=== PATIENT | female | born 1985 | race Caucasian/White ===

== ENCOUNTER → 2017-08-18 11:24 | Outpatient (CLI) | payer OTHER, SELFPAY ==
[2017-07-28 10:12] VITALS: BP 90/52; BMI 21.2
--- NOTE | 2017-08-18 11:26 | US_ITS ---
STUDY: SECOND AND THIRD TRIMESTER OBSTETRICAL ULTRASOUND - LIMITED REASON FOR EXAM: Female, 32 years old. WELL BEING LMP: PRIOR ULTRASOUND: 12..17 TECHNIQUE: Transabdominal ultrasound evaluation was performed. FINDINGS: There is a single intrauterine fetus. The fetus is in a cephalic presentation. There is demonstrated cardiac activity with a heart rate of 127 bpm. There is a normal amniotic fluid volume. The largest amniotic fluid pocket measures 5.4 cm. The amniotic fluid index (CHARLEY) is 12.9 cm. The placenta is anterior in location and is not low lying. There are Grade 1 placental changes. The cervix measures 44 mm cm in length. BIOMETRY: BPD: 86mm: 34 weeks, 4 days HC: 305mm: 34 weeks, 0 days AC: 280mm: 32 weeks, 0 days FL: 61mm: 31 weeks, 5 days Age by LMP: 31 weeks, 6 days. YOBANY by LMP: 4.26.18. age by prior US: 32 weeks, 6 days. YOBANY by prior US: 4.19.18. age by current US: 33 weeks, 1 days. YOBANY by current US: 4.17.18. Estimated weight: 1940 grams, +/- 283 grams, 53 percentile. US/OB Limited With Biometrics IMPRESSION: There is a single live intrauterine with a heart rate of 127 bpm. age by current US: 33 weeks, 1 days. YOBANY by current US: 4.17.18. Electronically Signed: Ivan Purdy MD at 18:01 EST , Service support ,
== END ==
PROVIDERS: Family Provider Family Medicine; PCP Family Medicine; Visit Provider Obstetrics & Gynecology
DX: O09.899 Supervision of other high risk pregnancies, unspecified trimester (principal); Z3A.00 Weeks of gestation of pregnancy not specified
CPT/HCPCS: 76816

== ENCOUNTER → 2017-09-08 09:04 | Outpatient (CLI) | payer OTHER, SELFPAY ==
[2017-09-08 10:10] LABS: Absolute Lymphocyte Count 1.57 X10^3/ul (0.83-4.51); Absolute Neutrophil Count 7.1 X10^3/uL (2.0-7.7); Basophil# 0.02 X10^3/uL; Basophil% 0.2 % (0-1); Eosinophil# 0.03 X10^3/uL; Eosinophils% 0.3 % (0-5); Hematocrit 33.2 % (37-47); Hemoglobin 10.8 g/dl (12.0-15.0); Lymphocyte # 1.57 X10^3/ul (4.0); Lymphocyte % 16.7 % (19-41); Mean Corp Hgb Conc 32.5 g/gl (32-36); Mean Corpuscular Hgb 31.2 pg (27.0-32.0); Mean Platelet Vol. 9.8 fl (6.2-12.0); Monocyte# 0.62 X10^3/uL; Monocyte% 6.6 % (0-10); Neutrophil % 75.8 % (47-70); Platelet Count 215 K/mm3 (150-450); RBC Distribution Width CV 12.3 % (11.6-14.6); RBC Distribution Width SD 41.7 fl (35.1-43.9); Red Blood Count 3.46 M/mm3 (4.2-5.4); White Blood Count 9.4 K/mm3 (4.4-11.0)
[2017-09-08 10:12] LABS: POSITIVE COUNT NO; POSITIVE DIFFERENTIAL NO; POSITIVE MORPHOLOGY NO
== END ==
PROVIDERS: Family Provider Family Medicine; PCP Family Medicine; Visit Provider Obstetrics & Gynecology
DX: O09.899 Supervision of other high risk pregnancies, unspecified trimester (principal); Z3A.00 Weeks of gestation of pregnancy not specified
CPT/HCPCS: 36415; 85025

== ENCOUNTER → 2017-09-08 17:14 | Outpatient (CLI) | payer OTHER, SELFPAY | PROVIDERS: Family Provider Family Medicine; PCP Family Medicine; Visit Provider Obstetrics & Gynecology | DX: R80.9 Proteinuria, unspecified (principal) | CPT/HCPCS: 87086 ==

== ENCOUNTER → 2017-09-15 13:53 | Outpatient (CLI) | payer OTHER, SELFPAY ==
--- NOTE | 2017-09-15 13:54 | US_ITS ---
STUDY: SECOND AND THIRD TRIMESTER OBSTETRICAL ULTRASOUND - LIMITED REASON FOR EXAM: Female, 32 years old. growth. well-being. 2, para 1. LMP: 01/07/2017 PRIOR ULTRASOUND: 08/18/2017. TECHNIQUE: Transabdominal ultrasound evaluation was performed. FINDINGS: There is a single intrauterine fetus. The fetus is in a cephalic presentation. There is demonstrated cardiac activity with a heart rate of 144 bpm. There is a normal amniotic fluid volume. The largest amniotic fluid pocket measures 7.9 cm. The amniotic fluid index (CHARLEY) is 18.38 cm. The placenta appears anterior where visualized, not low lying. There are Grade 2 placental changes. The cervix was not visualized. BIOMETRY: BPD: 9.1: 37 weeks, 6 days HC: 32.9: 37 weeks, 3 days AC: 31.7: 35 weeks, 5 days FL: 6.8: 35 weeks, 0 days Age by LMP: 35 weeks, 6 days. YOBANY by LMP: 10/14/2017. age by prior US: 37 weeks, 1 days. YOBANY by prior US: 10/05/2017. age by current US: 36 weeks, 2 days. YOBANY by current US: 10/11/2017. Estimated weight: 2759 grams, +/- 403 grams, 47 percentile. US/OB Limited With Biometrics IMPRESSION: Single live intrauterine as described with heart rate 144 BPM. Visualized recurrent ultrasound 36 weeks, 2 days with YOBANY of 10/11/2017. Electronically Signed: Robe Guevara, at 15:32 EDT Tel , Service support ,
== END ==
PROVIDERS: Family Provider Family Medicine; PCP Family Medicine; Visit Provider Obstetrics & Gynecology
DX: O99.343 Other mental disorders complicating pregnancy, third trimester (principal); F41.9 Anxiety disorder, unspecified; O21.0 Mild hyperemesis gravidarum; O28.9 Unspecified abnormal findings on antenatal screening of mother; O99.013 Anemia complicating pregnancy, third trimester; D64.9 Anemia, unspecified; O09.899 Supervision of other high risk pregnancies, unspecified trimester; Z3A.34 34 weeks gestation of pregnancy
CPT/HCPCS: 76816

== ENCOUNTER → 2017-09-22 14:35 | Outpatient (CLI) | payer OTHER, SELFPAY ==
[2017-09-22 15:51] LABS: Group B Strep DNA By PCR Negative (Negative); Internal Control PASS; Probe Check PASS; Specimen Processing Control PASS
== END ==
PROVIDERS: Family Provider Family Medicine; PCP Family Medicine; Visit Provider Obstetrics & Gynecology
DX: Z34.90 Encounter for supervision of normal pregnancy, unspecified, unspecified trimester (principal)
CPT/HCPCS: 87081; 87653

== ENCOUNTER → 2017-09-29 14:30 | Outpatient (CLI) | payer OTHER, SELFPAY ==
[2017-09-29 15:10] LABS: Protein, Urine (Random) 71.6 mg/dL (<11.9); Protein:Creat Ratio 303 mg/g CRE (0-200)
== END ==
PROVIDERS: Visit Provider Obstetrics & Gynecology
DX: O12.10 Gestational proteinuria, unspecified trimester (principal); Z3A.00 Weeks of gestation of pregnancy not specified
CPT/HCPCS: 82570; 84156

== ENCOUNTER 2017-09-30 01:05 | Inpatient (IN) | payer OTHER, SELFPAY ==
[2017-09-30 01:30] VITALS: BMI 23.1
[2017-09-30] MEDS: Lactated Ringers 1,000 ML 50 ML IV ×2 (01:30→02:29)
--- NOTE | 2017-09-30 01:46 | PCM.HP.OB ---
- Problem List (1) Active labor at term Status: Acute (2) Anxiety during in third trimester, antepartum Status: Acute Comment: celexa vistaril encouraged therapy (3) Hyperemesis affecting , antepartum Status: Acute (4) Supervision of other high risk pregnancies, unspecified trimester Status: Acute Comment: PRR YOBANY 10/14/17 boy on US- Elieser PC Edouard Cheikh (5) Abnormal findings on screening Status: Acute Comment: elevated hcg on sequential screen- recommend serial growth us after 32 weeks (6) Anemia in preg-unspec Status: Acute Qualifiers: History Date of Admission: 09/30/17 Final YOBANY: 10/14/17 Gestational age: 38 Weeks and 0 Days History of this : 32 yo @ 38w presents IAL 6 cm dilated Pertinent Past Medical History: Past Medical History (Last Reviewed 09/29/17 @ 08:48 by Kiya Coates) Anxiety (Acute) Mom's Labs & Results 09/30/17 09/30/17 01:35 01:35 WBC Pending RBC Pending Hgb Pending Hct Pending MCV Pending MCH Pending MCHC Pending RDW Pending RDW Differential Pending Plt Count Pending Blood Type Pending Antibody Screen Pending Course Did the patient receive Yes care? Labs Blood Type: O RH: POSITIVE RPR/VDRL/Syphilis Nonreactive Rubella status Immune HbSAg Negative Date Done: 04/08/17 Chlamydia Negative Gonorrhea Negative HIV/AIDS Non-Reactive Group B Strep: Negative Social History Alleged father Cheikh Baldwin Smoking No Smoking Status Never smoker How long have you used denies substances (years)? All Active Problems (Last Reviewed 09/29/17 @ 08:48 by Kiya Coates) Proteinuria affecting in third trimester (Acute) Anxiety during in third trimester, antepartum (Acute) Hyperemesis affecting , antepartum (Acute) Supervision of other high risk pregnancies, unspecified trimester (Acute) Abnormal findings on screening (Acute) Anemia in preg-unspec (Acute) Allergies No Known Allergies Allergy (Verified 09/30/17 01:38) Current Medications Acetaminophen (Tylenol) 325 - 650 mg PO Q4H PRN PRN PRN Reason: PAIN OR FEVER >100.4F Al Hydroxide/Mg Hydroxide (Mylanta Ii) 15 - 30 ml PO Q4H PRN PRN PRN Reason: INDIGESTION Citric Acid/Sodium Citrate (Bicitra) 30 ml PO UD PRN Lactated Ringer's () 1,000 mls @ 50 mls/hr IV .Q20H ANJANA Nalbuphine HCl (Nubain) 5 - 10 mg IV Q3H PRN PRN PRN Reason: PAIN (4-10/10) Ondansetron HCl (Zofran) 4 mg IV Q8H PRN PRN PRN Reason: NAUSEA Promethazine HCl (Phenergan) 6.25 - 12.5 mg IV Q4H PRN PRN; Protocol PRN Reason: IF NAUSEA PERSISTS Sodium Chloride () 5 - 15 ml IV UD [facility] Smoking Status: Never smoker Alcohol: None Drug Use: none Number of Fetus(es): 1 - fht 130s moderate variabiltiy no decels category I tracing Review of Systems Constitutional: Denies: Chills, Fever, Weight Change HEENT: Denies: Head Aches, Sinus Congestion, Sinus Drainage Cardiovascular: Denies: Chest Pain, Palpitations Respiratory: Denies: Cough, Shortness of breath at rest, Sputum production Gastrointestinal: Reports: Abdominal Pain. Denies: Nausea, Vomiting Genitourinary: Denies: Dysuria Gynecological: Denies: Vaginal bleeding, Vaginal discharge Musculoskeletal: Denies: Joint Pain, Joint Tenderness Skin: Denies: Rash, Wounds Neurological: Denies: Numbness, Tingling, Focal weakness Psychiatric: Denies: Anxiety, Depression, Homicidal Ideations, Suicidal Ideations Hematologic/ Lymphatic: Denies: Easy Bruising, Easy Bleeding Physical Exam General: Alert Cardiovascular: Regular rate Lungs: Normal air movement Abdomen: Non Tender, Gravid Extremities:: No edema Estimated gestational size: Appropriate for gestational size Cervix Dilation (cm): 6 Station: -1 Assessment/Plan Active and Suspected Problems (Last Reviewed 09/29/17 @ 08:48 by Kiya Coates) Active labor at term (Acute) 32 yo @ 38 weeks presents IAL admit IAL epi prn expectant management
[2017-09-30 01:47] LABS: Hematocrit 33.7 % (37-47); Mean Corp Hgb Conc 32.6 g/gl (32-36); Mean Corpuscular Hgb 30.1 pg (27.0-32.0); Mean Corpuscular Volume 92.3 fL (81-99); Mean Platelet Vol. 9.9 fl (6.2-12.0); Platelet Count 194 K/mm3 (150-450); RBC Distribution Width CV 13.3 % (11.6-14.6); RBC Distribution Width SD 44.2 fl (35.1-43.9); Red Blood Count 3.65 M/mm3 (4.2-5.4); White Blood Count 10.6 K/mm3 (4.4-11.0)
[2017-09-30 01:48] LABS: Scan Indicated on CBC? Y/N NO
[2017-09-30] MEDS: fentaNYL-bupivacaine (epidural) 100 ML BAG EPIDURAL (02:29)
[2017-09-30] MEDS: Oxytocin 30 units/NS 500 ml 30 UNITS/500 ML IV.SOLN 334 UNITS IV (04:23)
[2017-09-30] MEDS: Oxytocin 30 units/NS 500 ml 30 UNITS/500 ML IV.SOLN 167 UNITS IV (04:53)
--- NOTE | 2017-09-30 05:48 | PCM.OB.VAG ---
- Problem List (1) Active labor at term Status: Acute (2) Anxiety during in third trimester, antepartum Status: Acute Comment: celexa vistaril encouraged therapy (3) Hyperemesis affecting , antepartum Status: Acute (4) Supervision of other high risk pregnancies, unspecified trimester Status: Acute Comment: PRR YOBANY 10/14/17 boy on US- Elieser PC Edouard Cheikh (5) Abnormal findings on screening Status: Acute Comment: elevated hcg on sequential screen- recommend serial growth us after 32 weeks (6) Anemia in preg-unspec Status: Acute Qualifiers: Vaginal Delivery Maternal Presentation: Active Labor 38 weeks IAL Amniotic Membrane Rupture Type: Artificial Amniotic Fluid Description: Clear Final YOBANY: 10/14/17 Gestational age: 38 Weeks and 0 Days Date of Procedure: 09/30/17 Pre-Operative Diagnosis: ial Post-Operative Diagnosis: same Surgery/ Procedure Performed: Spontaneous Vaginal Delivery Type of Anesthesia: Epidural Description of Procedure: Patient began pushing and delivered the head in the GAMALIEL presentation. The head was delivered atraumatically and a very tight nuchal cord ?1 was identified and after the anterior shoulder delivered it was cut on the perineum. The posterior shoulders delivered without complication followed by the rest of the infant and the infant was placed on the maternal abdomen. Delayed cord clamping was employed for approximately 60 seconds. Cord was clamped and cut and gentle traction was applied to the cord and the placenta delivered spontaneously immediately following it was noted to be intact with three-vessel cord. The perineum and vagina were inspected and noted to have a small supraclitoral and a 1st degree perineal laceration which were repaired int he usual fashion with 3-0 vicryl rapide. EBL was 200 cc. Patient and tolerated delivery well. Cord Vessel Description: 3 Vessels Cord Entanglement: Around neck x 1, tight Estimated Blood Loss: 200 Infant A gender: Male (1 minute): 6 (5 minute): 8 Episiotomy Description: None Laceration: Periurethral Extnsion/lac, Perineal Extension/lac, 1st degree Medications given after delivery: IV Pitocin Complications: None
[2017-09-30] MEDS: 0.9% Saline Lock 10 ML Syringe IV (05:58)
[2017-09-30 06:25] VITALS: BP 106/64; PULSE 80; RESP 18; TEMP 36.8
[2017-09-30 08:00] VITALS: BP 94/59; PULSE 75; RESP 18; TEMP 37
--- NOTE | 2017-09-30 09:44 | NURSING ---
After talking with Dr River pt placed on bedpan and after several minutes was able to void 300cc. fundus at umbilicus after void.
[2017-09-30 11:55] VITALS: BP 99/65; PULSE 84; RESP 18; TEMP 37
[2017-09-30] MEDS: Naproxen 250 MG Tablet PO ×2 (12:01→20:13)
[2017-09-30] MEDS: Prenatal Vits Tablet 1 TABLET PO (12:01)
[2017-09-30] MEDS: Citalopram 10 MG Tablet PO (12:01)
[2017-09-30] MEDS: Acetaminophen 500 MG Tablet 1000 MG PO (15:32)
[2017-09-30 16:00] VITALS: BP 101/48; PULSE 76; RESP 18; TEMP 36.8
[2017-09-30 20:05] VITALS: BP 99/50; PULSE 90; RESP 18; TEMP 36.9; O2SAT 97
[2017-09-30 23:53] VITALS: BP 82/47; PULSE 68; RESP 16; TEMP 36.6
--- NOTE | 2017-09-30 23:53 | NURSING ---
pts bp usually runs low. pt symptom free
[2017-10-01 04:10] VITALS: BP 98/53; PULSE 79; RESP 18; TEMP 36.4
[2017-10-01] MEDS: Naproxen 250 MG Tablet PO ×2 (04:18→12:53)
[2017-10-01 08:00] VITALS: BP 96/65; PULSE 74; RESP 18; TEMP 36.6; O2SAT 100
[2017-10-01] MEDS: Citalopram 10 MG Tablet PO (10:00)
[2017-10-01] MEDS: Prenatal Vits Tablet 1 TABLET PO (10:01)
--- NOTE | 2017-10-01 13:58 | PCM.PN.OB ---
Patient Problems: Active and Suspected Problems (Last Reviewed 09/29/17 @ 08:48 by Kiya Coates) Active labor at term (Acute) Subjective: doing well n ocomplaints - Physical Exam General: Alert Vital Signs Temp Pulse Resp BP Pulse Ox 97.8 F 74 18 96/65 100 10/01/17 08:00 10/01/17 08:00 10/01/17 08:00 10/01/17 08:00 10/01/17 08:00 Oxygen Delivery Method Room Air Weight: 139 lb 6.4 oz Body Mass Index (BMI) 23.1 Intake and Output for Last 24 Hours 09/29/17 09/30/17 10/01/17 23:59 23:59 23:59 Intake Total 2253 / 2253 Output Total 2350 / 2350 Balance -97 / -97 Medical Necessity - Tobacco Use Smoking Status: Never smoker Assessment/Plan Active and Suspected Problems (Last Reviewed 09/29/17 @ 08:48 by Kiya Coates) Active labor at term (Acute) s/p [facility]
--- NOTE | 2017-10-01 14:00 | DCINST_ITS ---
Discharge Diet: No Restrictions Discharge Activity: Return to Normal Activity, May not drive while taking narcotic pain medications., May Shower May resume sexual activity in: 4-6 weeks Call your doctor if your incision/area has: Continuous Slow Oozing, Sudden Increased Bleeding, Increased Pain/ Swelling, Increased Redness, Foul Smelling Discharge Additional Instructions: If you experience any of the following, contact your healthcare provider. * Bleeding that soaks a pad every hour for 2 hours * Fever 100.4 or higher * Unrelieved incision or abdominal pain * Swelling, redness, discharge or bleeding from your incision or episiotomy site * Your incision begins to separate * Problems urinating (including inability to urinate or burning while urinating) . * Visual changes * Severe headache * Flu-like symptoms * Pain or redness in one of both of your breasts * Pain, warmth, tenderness or swelling in your legs, especially the calf area * Frequent nausea and vomiting * Symptoms of depression or anxiety If you experience any of the following, call 911 or go to the nearest Emergency Room. * Chest pain * Problems breathing * Seizure activity * Partial or complete paralysis of a body part, slurred speech, weakness or drooping of the face, or a sudden inability to walk or hold your balance Allergies/Adverse Reactions: Allergies No Known Allergies Allergy (Verified 09/30/17 01:38) Medications to take at Discharge Loratadine [Claritin] 10 mg PO DAILY 08/07/15 Pantoprazole Sodium [Pantoprazole Sodium] 40 mg PO DAILY 08/07/15 Vits [Prenatabs FA] 1 tab PO DAILY 08/07/15 ondansetron HCl 4 mg tablet 4 mg PO Q4H 06/16/17 compression stocking,thigh high,long length,extra small circumference See Dose Instructions .ROUTE .MEDSUPPLY #12 ea 07/14/17 hydroxyzine pamoate 25 mg capsule 25 mg PO TID-QID PRN #60 cap 08/25/17 Citalopram [Celexa] 10 mg PO DAILY 09/30/17 Docusate Sodium [Colace] 100 mg PO DAILY 09/30/17 Please Follow Up With: Ofelia River MD - [phone] When: Call to make an appointment with your doctor in 6 weeks. If you had elevated Blood pressure or 4th degree laceration you will need to be seen in 2 weeks. Primary Care Physician: Yazan Douglas III, MD [Primary Care Provider] -
[2017-10-01 15:00] VITALS: BP 96/63; PULSE 73; RESP 16; TEMP 36.7; O2SAT 100
--- NOTE | 2017-10-01 15:05 | CASEMGMT ---
Social Work Note Labor and Delivery Unit Social Work Assessment completed. Refer to documentation below for further details. Date of Referral: 09/30/2017 Time of Referral: 725 Referred By: Dr. River Reason for Referral: maternal history of depression Date of Intervention: 10/01/2017 Time of Intervention: 1330 History obtained from: Medical record, mother of baby (MOB) and father of baby (FOB) Household composition: MOB, FOB, and oldest child Edouard (born July 2015). Patient's parent/guardian status: , and now have two children: Edouard and Elieser (born [id number]). Medical History: RUSTY is G2, P1 to 2 after delivering . good. Elieser born weighing 7 pounds 6 ounces, Apgars 6 and 8 at 1 and 5 minutes of life. Educational Status: No reported problems with reading, writing, or learning comprehension. Financial Status: FOB works as a pharmacist. Income reported to be adequate. Infant Supplies: Parents report to have needed baby supplies including car seat, bassinet, crib, clothing, diapers, wipes, and is breast feeding. Childcare/Caregiver(s): MOB is primary caregiver. FOB assists when at home. Transportation: No reported issues. Programs/Agencies Involved: No agency involvement, or reported/indicated need for such. Behavioral Health Issues: MOB reports history of depression and anxiety. MOB reports looking back on period with Edouard, now believes had depression. MOB and FOB both reports at the time has been trying to determine if it was normal stress or depression. MOB reports never sought out interventions such as counseling or medication, that toughed this out on own. MOB reports that decided did not want to go through that experience again, so a few weeks ago started an antidepressant. MOB reports plan to stay on medication in the period. MOB reports to be feeling good right now, to have a connection with baby, and to be happy. No reports or indication of any drug or alcohol use/abuse issues. Family/Social Stressors: No reported stressors during social work visit. Support Systems: MOB reports FOB is supportive, and FOB reports will be taking 2 weeks off of work. MOB reports both sets of parents are also around and supportive. MOBs father is the primary head bucker when MOB needs. ASSESSMENT: Nursing reports MOB has been doing well with the baby, no issues noted with interactions or bonding. RN also reports FOB has been attentive and supportive to MOB and baby. During social work visit, MOB answered most questions with FOB giving input at appropriate intervals. MOB and FOB listened to social work education on depression. MOB receptive to having resources for this topic, thanking social work for the information offered. MOB pleasant, cooperative, good eye contact, teary eyed, affect congruent to content. MOB reports has made a plan to have infants maternal grandfather watch Miles should MOB need a break from two children, or things get overwhelming at all managing things at home. MOBs reports to like to plan things if possible. MOB appearing to be proactive with need for self-care, and insight into importance of such for not only care of self but for care of children. MOB denies any other needs at home going. Interventions: Provided verbal education on mood and anxiety disorders. Provided packet on mood and anxiety disorders, including common facts, online resources directly related to this topic. Provided local mental health resources should MOB desire extra support. PLAN: MOB and baby to home at time of discharge with help from FOB and other family member as needed. MOB plans to stay on antidepressant in the period. No other services requested or indicated. -STACEY Marshall, ZIYAD
--- NOTE | 2017-10-01 17:33 | NURSING ---
pt discharged to home. verbal and written instructions given for discharge. pt denies questions. pt taken out in wheelchair with baby in carseat accompanied by .
== END 2017-10-01 16:55 | disposition home or self-care (01) | DRG 775 ==
PROVIDERS: Admitting Provider Obstetrics & Gynecology; Family Provider Family Medicine; PCP Family Medicine; Visit Provider Obstetrics & Gynecology
DX: O70.0 First degree perineal laceration during delivery (principal); O12.13 Gestational proteinuria, third trimester; O99.02 Anemia complicating childbirth; F41.9 Anxiety disorder, unspecified; O69.1XX0 Labor and delivery complicated by cord around neck, with compression, not applicable or unspecified; D64.9 Anemia, unspecified; O99.344 Other mental disorders complicating childbirth; O21.0 Mild hyperemesis gravidarum; O28.8 Other abnormal findings on antenatal screening of mother; Z3A.38 38 weeks gestation of pregnancy; Z37.0 Single live birth
CPT/HCPCS: 59025; 59050; 85027; 86850; 86900; 99218; J7120; A4216; G0378

== ENCOUNTER → 2017-11-10 15:09 | Outpatient (CLI) | payer OTHER, SELFPAY ==
[2017-11-18 10:53] LABS: HPV APTIMA, High Risk Negative (Negative)
== END ==
PROVIDERS: Family Provider Family Medicine; PCP Family Medicine; Visit Provider Obstetrics & Gynecology
DX: Z12.4 Encounter for screening for malignant neoplasm of cervix (principal)
CPT/HCPCS: 88175; G0145

== ENCOUNTER → 2019-03-16 08:29 | Outpatient (CLI) | payer OTHER, SELFPAY ==
[2019-03-16 08:11] VITALS: BMI 20.2
[2019-03-16 08:46] LABS: Absolute Lymphocyte Count 1.37 X10^3/uL (0.83-4.51); Absolute Neutrophil Count 2.2 X10^3/uL (2.0-7.7); Basophil# 0.05 X10^3/uL; Basophil% 1.2 % (0-1); Eosinophil# 0.11 X10^3/uL; Eosinophils% 2.7 % (0-5); Hemoglobin 12.5 g/dL (12.0-15.0); Lymphocyte # 1.37 X10^3/ul (4.0); Lymphocyte % 33.8 % (19-41); Mean Corp Hgb Conc 32.1 g/dL (32-36); Mean Corpuscular Hgb 30.4 pg (27.0-32.0); Mean Corpuscular Volume 94.9 fL (81-99); Mean Platelet Vol. 9.6 fl (6.2-12.0); Monocyte# 0.29 X10^3/uL; Monocyte% 7.2 % (0-10); NRBC Flagged by Analyzer 0 % (0-5); Neutrophil # 2.21 X10^3/uL (2.7-7.7); Neutrophil % 54.6 % (47-70); Platelet Count 203 K/mm3 (150-450); RBC Distribution Width CV 12.8 % (11.6-14.6); RBC Distribution Width SD 45.1 fl (35.1-43.9); Red Blood Count 4.11 M/mm3 (4.2-5.4); White Blood Count 4.1 K/mm3 (4.4-11.0)
[2019-03-16 09:08] LABS: Thyroid Stim Hormone (TSH) 0.96 uIU/mL (0.358-3.74)
== END ==
PROVIDERS: Family Provider Family Medicine; PCP Family Medicine; Referring Provider Nurse Practitioner Women's Health; Visit Provider Nurse Practitioner Women's Health
DX: N92.1 Excessive and frequent menstruation with irregular cycle (principal)
CPT/HCPCS: 36415; 84443; 85025

== ENCOUNTER → 2019-03-22 07:59 | Outpatient (CLI) | payer OTHER, SELFPAY ==
[2019-03-16 09:33] VITALS: BMI 20.2
--- NOTE | 2019-03-22 08:01 | US_ITS ---
STUDY: ULTRASOUND OF THE FEMALE PELVIS - COMPLETE REASON FOR EXAM: Female, 34 years old. Menorrhagia. LMP: 03/15/2019 TECHNIQUE: Transabdominal real-time exam with cheek scale image documentation. Transvaginal ultrasound was required for better visualization of the uterus and ovaries. TECHNICAL QUALITY: Adequate. COMPARISON: None. FINDINGS: The uterus is retroverted and is in a midline position. The uterus measures 7.0 x 5.0 x 4.3 cm. Normal uterine cervix. The endometrium measures 5.4 mm in thickness, and is hyperechoic. There is no demonstrated endometrial mass. There is no demonstrated myometrial mass. I.U.D. - The patient does not have an I.U.D. The right ovary is visualized. The right ovary measures 3.3 x 1.3 x 1.1 cm. There is no right ovarian cyst or ovarian mass. There is no visualized right adnexal mass or complex lesion. There is normal arterial and normal venous vascularity. The left ovary is visualized. The left ovary measures 1.7 x 3.5 x 1.2 cm. There is no left ovarian cyst or ovarian mass. There is no visualized left adnexal mass or complex lesion. There is normal arterial and normal venous vascularity. Trace of free fluid. The pre void volume of the bladder was 380 ml. Polycystic ovary disease: No. US/Transvaginal Non- IMPRESSION: Normal female pelvis. Electronically Signed: Christy Griffin MD at 17:37 EDT , Service support ,
--- NOTE | 2019-03-22 08:01 | US_ITS ---
STUDY: ULTRASOUND OF THE FEMALE PELVIS - COMPLETE REASON FOR EXAM: Female, 34 years old. Menorrhagia. LMP: 03/15/2019 TECHNIQUE: Transabdominal real-time exam with cheek scale image documentation. Transvaginal ultrasound was required for better visualization of the uterus and ovaries. TECHNICAL QUALITY: Adequate. COMPARISON: None. FINDINGS: The uterus is retroverted and is in a midline position. The uterus measures 7.0 x 5.0 x 4.3 cm. Normal uterine cervix. The endometrium measures 5.4 mm in thickness, and is hyperechoic. There is no demonstrated endometrial mass. There is no demonstrated myometrial mass. I.U.D. - The patient does not have an I.U.D. The right ovary is visualized. The right ovary measures 3.3 x 1.3 x 1.1 cm. There is no right ovarian cyst or ovarian mass. There is no visualized right adnexal mass or complex lesion. There is normal arterial and normal venous vascularity. The left ovary is visualized. The left ovary measures 1.7 x 3.5 x 1.2 cm. There is no left ovarian cyst or ovarian mass. There is no visualized left adnexal mass or complex lesion. There is normal arterial and normal venous vascularity. Trace of free fluid. The pre void volume of the bladder was 380 ml. Polycystic ovary disease: No. US/Pelvic (Non ) IMPRESSION: Normal female pelvis. Electronically Signed: Christy Griffin MD at 17:37 EDT , Service support ,
== END ==
PROVIDERS: Family Provider Family Medicine; PCP Family Medicine; Referring Provider Nurse Practitioner Women's Health; Visit Provider Nurse Practitioner Women's Health
DX: N92.1 Excessive and frequent menstruation with irregular cycle (principal)
CPT/HCPCS: 76830; 76856

== ENCOUNTER → 2019-05-17 16:13 | Outpatient (CLI) | payer OTHER, SELFPAY ==
[2019-05-17 12:27] VITALS: BMI 20.2
[2019-05-17 20:05] LABS: Chlamydia Trachomatis by PCR Negative (Negative); Neisserai gonorrhoeae by PCR Negative (Negative); Probe Check PASS; Sample Adequacy Control PASS; Specimen Processing Control PASS
== END ==
PROVIDERS: Family Provider Family Medicine; PCP Family Medicine; Referring Provider Obstetrics & Gynecology; Visit Provider Obstetrics & Gynecology
DX: Z34.90 Encounter for supervision of normal pregnancy, unspecified, unspecified trimester (principal)
CPT/HCPCS: 87491; 87591

== ENCOUNTER → 2019-05-24 09:02 | Outpatient (CLI) | payer OTHER, SELFPAY ==
[2019-05-17 12:27] VITALS: BMI 20.2
--- NOTE | 2019-05-24 09:03 | US_ITS ---
STUDY: FIRST TRIMESTER OBSTETRICAL ULTRASOUND REASON FOR EXAM: Female, 34 years old . Gestational age. LMP: March 26, 2019. TECHNIQUE: Transvaginal TECHNICAL QUALITY: Adequate. PRIOR ULTRASOUND: None. FINDINGS: There is visualization of a single gestational sac in a normal intrauterine position. The mean sac diameter (MSD) measures 2.61 cm, indicating an estimated gestational age (EGA) of 7 weeks, 5 days. The gestational sac shape is within normal limits. There is a visualized yolk sac. The yolk sac measures 4.3 mm. The placenta is non-visualized. There is visualization of a live embryo. The crown-rump length (CRL) measures 8.6 mm, indicating an estimated gestational age (EGA) of 6 weeks, 6 days. There is demonstrated cardiac activity with a heart rate of 144 bpm. The estimated gestation age (EGA) by LMP is 8 weeks, 3 days. The estimated date of delivery (YOBANY) by LMP is December 31, 2019. The estimated gestation age (EGA) by US is 7 weeks, 2 days. The estimated date of delivery (YOBANY) by US is January 08, 2020. The uterus measures 10.1 cm x 7.6 x 5.8 cm. There is no demonstrated uterine fibroid. The cervix is closed. The right ovary measures 2.8 cm x 2.7 cm x 2.2 cm. There is a 1.9 cm x 2 cm x 1.8 cm cyst. There is no visualized right adnexal mass or complex lesion. The left ovary is not visualized. There is minimal fluid in the cul de sac. US/Init OB < 14Wks US IMPRESSION: Single live intrauterine gestation with mean gestational age of 7 weeks and 2 days. Electronically Signed: David Sprague, at 15:19 EST , Service support ,
== END ==
PROVIDERS: Family Provider Family Medicine; PCP Family Medicine; Referring Provider Obstetrics & Gynecology; Visit Provider Obstetrics & Gynecology
DX: Z34.90 Encounter for supervision of normal pregnancy, unspecified, unspecified trimester (principal)
CPT/HCPCS: 76801

== ENCOUNTER → 2019-06-15 15:41 | Outpatient (CLI) | payer OTHER, SELFPAY ==
[2019-06-15 15:21] VITALS: BMI 20.2
[2019-06-15] MEDS: Dextrose 5%-Lactated Ringers 1,000 ML 999 ML IV (15:56)
[2019-06-15] MEDS: Ondansetron 4 MG/2 ML Vial 8 MG IV (15:56)
[2019-06-15] MEDS: Meclizine HCl 25 MG Tablet PO (16:02)
[2019-06-15 16:06] VITALS: BP 97/61; PULSE 82; RESP 16; TEMP 36.4; O2SAT 100; BMI 20.2
== END ==
PROVIDERS: Family Provider Family Medicine; PCP Family Medicine; Referring Provider Obstetrics & Gynecology; Visit Provider Obstetrics & Gynecology
DX: E86.0 Dehydration (principal)
CPT/HCPCS: 96361; 96374; 36415; A4216; J2405

== ENCOUNTER → 2019-06-20 12:33 | Outpatient (CLI) | payer OTHER, SELFPAY ==
[2019-06-15 16:06] VITALS: BMI 20.2
[2019-06-20 12:46] VITALS: BP 96/54; PULSE 80; RESP 16; TEMP 36.6; O2SAT 100; BMI 18.3
[2019-06-20] MEDS: Dextrose 5%-Lactated Ringers 1,000 ML 999 ML IV (13:01)
[2019-06-20] MEDS: Ondansetron 4 MG/2 ML Vial IV (13:20)
== END ==
PROVIDERS: Family Provider Family Medicine; PCP Family Medicine; Referring Provider Obstetrics & Gynecology; Visit Provider Obstetrics & Gynecology
DX: E86.0 Dehydration (principal)
CPT/HCPCS: 96361; 96374; J2405

== ENCOUNTER → 2019-08-11 09:30 | Outpatient (CLI) | payer OTHER, SELFPAY ==
[2019-08-11 09:19] VITALS: BMI 18.3
[2019-08-11 11:50] LABS: Hepatitis B Surface Antigen Non-Reactive (Nonreactive); Hepatitis C Antibody Non-Reactive (Nonreactive)
[2019-08-16 14:08] LABS: AFP MoM Value 1.03 (.); AFP Value-EIA 53.5 ng/mL (.); Comment Report (.); DIA Value-EIA 198.39 pg/mL (.); DSR (By Age) 374 (.); DSR (Second Trimester) 4198 (.); Gestat. Age Based On As provided (.); Insulin Dep Diabetes No (.); Maternal Age At EDD 33.9 yr (.); hCG MoM 1.56 (.)
== END ==
PROVIDERS: PCP Family Medicine; Referring Provider Obstetrics & Gynecology; Visit Provider Obstetrics & Gynecology
DX: Z34.90 Encounter for supervision of normal pregnancy, unspecified, unspecified trimester (principal)
CPT/HCPCS: 36415; 82105; 82677; 84702; 86803; 87340

== ENCOUNTER → 2019-10-04 09:54 | Outpatient (CLI) | payer OTHER, SELFPAY ==
[2019-09-08 09:00] VITALS: BMI 18.3
[2019-10-04 10:46] LABS: Absolute Lymphocyte Count 1.27 X10^3/uL (0.83-4.51); Absolute Neutrophil Count 5.6 X10^3/uL (2.0-7.7); Basophil# 0.03 X10^3/uL; Basophil% 0.4 % (0-1); Eosinophil# 0.05 X10^3/uL; Eosinophils% 0.7 % (0-5); Hematocrit 32.3 % (37-47); Hemoglobin 10.3 g/dL (12.0-15.0); Lymphocyte # 1.27 X10^3/ul (4.0); Lymphocyte % 17.1 % (19-41); Mean Corp Hgb Conc 31.9 g/dL (32-36); Mean Corpuscular Hgb 32.3 pg (27.0-32.0); Mean Corpuscular Volume 101.3 fL (81-99); Mean Platelet Vol. 9.9 fl (6.2-12.0); Monocyte# 0.36 X10^3/uL; Monocyte% 4.9 % (0-10); NRBC Flagged by Analyzer 0 % (0-5); Neutrophil # 5.62 X10^3/uL (2.7-7.7); Neutrophil % 75.7 % (47-70); Platelet Count 182 K/mm3 (150-450); RBC Distribution Width CV 13.5 % (11.6-14.6); RBC Distribution Width SD 50.8 fl (35.1-43.9); Red Blood Count 3.19 M/mm3 (4.2-5.4); White Blood Count 7.4 K/mm3 (4.4-11.0)
[2019-10-04 11:01] LABS: Glucose Challenge Gest 1H 50g 133 mg/dL (70-140)
[2019-10-04 11:34] LABS: HIV - WCH Non-Reactive (Nonreactive); Rubella IgG > 500.0 IU/mL
[2019-10-05 00:57] LABS: Rapid Plasmin Reagin (RPR) NONREACTIVE (NONREACTIVE)
== END ==
PROVIDERS: PCP Family Medicine; Referring Provider Obstetrics & Gynecology; Visit Provider Obstetrics & Gynecology
DX: O09.90 Supervision of high risk pregnancy, unspecified, unspecified trimester (principal); E86.0 Dehydration; Z3A.00 Weeks of gestation of pregnancy not specified
CPT/HCPCS: 36415; 82950; 85025; 86592; 86703; 86762; 86850; 86900; 86901

== ENCOUNTER → 2019-11-03 09:17 | Outpatient (CLI) | payer OTHER, SELFPAY ==
[2019-10-20 08:52] VITALS: BMI 18.3
[2019-11-03 08:44] VITALS: BMI 18.3
--- NOTE | 2019-11-03 09:18 | US_ITS ---
STUDY: SECOND AND THIRD TRIMESTER OBSTETRICAL ULTRASOUND REASON FOR EXAM: Female, 34 years old GROWTH LMP: April 06, 2019. TECHNIQUE: Transabdominal TECHNICAL QUALITY: Adequate. PRIOR ULTRASOUND: Comparison is made with prior examination dated May 24, 2019. FINDINGS: There is a single intrauterine fetus. The fetus is in a cephalic presentation. There is demonstrated cardiac activity with a heart rate of 138 bpm. There is a normal amniotic fluid volume. The largest amniotic fluid pocket measures 5.8 cm. The amniotic fluid index (CHARLEY) is 21.6 cm. The placenta is posterior in location and is not low lying. There are Grade 1 placental changes. The cervix measures 4.1 cm in length. The adnexal regions are not visualized. BIOMETRY: BPD: 7.6 cm: 30 weeks, 4 days HC: 28.2 cm: 31 weeks, 0 days AC: 26.7 cm: 30 weeks, 6 days FL: 5.8 cm: 30 weeks, 2 days CI: 77% FL/BPD: 76% FL/HC: FL/AC: 22% HC/AC: 1.06 age by current US: 30 weeks, 5 days. YOBANY by current US: January 07, 2020. Estimated weight: 1607 grams, +/- 235 grams, 54 %. age by prior US: 30 weeks, 4 days. YOBANY by prior US: January 08, 2020. Age by LMP: 30 weeks, 1 days. YOBANY by LMP: January 11, 2020. US/OB Limited With Biometrics IMPRESSION: Single live uterine gestation with mean gestational age of 30 weeks and 4 days. The measurements obtained today fall within the normal expected range. Electronically Signed: David Sprague, at 10:57 EDT , Service support ,
== END ==
PROVIDERS: PCP Family Medicine; Referring Provider Obstetrics & Gynecology; Visit Provider Obstetrics & Gynecology
DX: R89.8 Other abnormal findings in specimens from other organs, systems and tissues (principal); E86.0 Dehydration
CPT/HCPCS: 76816

== ENCOUNTER 2019-11-22 09:30 | Outpatient (CLI) | payer OTHER, SELFPAY ==
[2019-11-22 08:50] VITALS: BMI 18.3
[2019-11-22 09:42] VITALS: BP 97/57; PULSE 86
[2019-11-22 09:43] VITALS: BP 97/57; PULSE 86; TEMP 36.7; O2SAT 100
[2019-11-22 09:57] VITALS: BMI 22.1
[2019-11-22 10:22] LABS: Mucous, Urine 0 SEEN /hpf (<or=2+); Red Blood Cells-Urine 0 SEEN /hpf (0-5)
[2019-11-22 10:23] LABS: Color, Urine Yellow (Yellow); Glucose, Dipstick Normal (Normal); Ketone-Dipstick Negative (Negative); Leukocyte Esterase-Dipstick 500 /ul (Negative); Nitrite-Dipstick Negative (Negative); Occult Blood-Urine Negative /ul (Negative); Protein-Dipstick Negative (Negative); Urine Bilirubin Dipstick Negative (Negative); Urine Clarity Cloudy (Clear); Urine Urobilinogen Normal (Normal)
[2019-11-22 10:30] LABS: Bacteria 2+ /hpf (None Seen); Squamous Epithelial Cells - UA 10-25 SEEN /hpf (5-10); White Blood Cells 10-25 SEEN /hpf (0-5)
--- NOTE | 2019-11-22 19:30 | OB.TRI.NOTE ---
- Problem List (1) 32 weeks gestation of Status: Acute (2) Non-reactive NST (non-stress test) Status: Acute History of Present Illness Date of Service: 11/22/19 Was patient seen by the physician?: No Reason For Visit: NST Date of Service: 11/22/19 Final YOBANY: 01/11/20 Final YOBANY Source: US <20 weeks Gestational age: 33 Weeks and 0 Days History of Present Illness: Non reactive NST in Dr. Corado's office today. Was sent to triage Allergies No Known Allergies Allergy (Verified 11/22/19 08:49) - Pertinent Past Medical History Medical History: Past Medical History (Last Reviewed 11/22/19 @ 08:50 by Halie Logan) Anxiety Laboratory Studies: Laboratory Tests 11/22/19 Range/Units 10:15 Urine Color Yellow (Yellow) Urine Clarity Cloudy (Clear) Urine pH 8.0 (5.0 - 8.0) Ur Specific [place] 1.010 (1.002-1.030) Urine Protein Negative (Negative) mg/dl Urine Glucose (UA) Normal (Normal) mg/dl Urine Ketones Negative (Negative) mg/dl Urine Occult Blood Negative (Negative) /ul Urine Nitrite Negative (Negative) Urine Bilirubin Negative (Negative) mg/dL Urine Urobilinogen Normal (Normal) mg/dl Ur Leukocyte Esterase 500 H (Negative) /ul Urine RBC 0 SEEN (0-5) /hpf Urine WBC 10-25 SEEN (0-5) /hpf Ur Squamous Epith Cells 10-25 SEEN (5-10) /hpf Urine Bacteria 2+ (None Seen) /hpf Urine Mucus 0 SEEN (<or=2+) /hpf Review of Systems Constitutional: Denies: Chills, Fever, Weight Change HEENT: Denies: Head Aches, Sinus Congestion, Sinus Drainage Cardiovascular: Denies: Chest Pain, Palpitations Respiratory: Denies: Cough, Shortness of breath at rest, Sputum production Gastrointestinal: Denies: Abdominal Pain, Nausea, Vomiting Genitourinary: Denies: Dysuria Musculoskeletal: Denies: Joint Pain, Joint Tenderness Skin: Denies: Rash, Wounds Neurological: Denies: Numbness, Tingling, Focal weakness Psychiatric: Denies: Anxiety, Depression, Homicidal Ideations, Suicidal Ideations Hematologic/ Lymphatic: Denies: Easy Bruising, Easy Bleeding Physical Exam Vitals: Vital Signs Temp Pulse BP Pulse Ox 98.0 F 86 97/57 L 100 11/22/19 09:43 11/22/19 09:43 11/22/19 09:43 11/22/19 09:43 General: Alert, Oriented x3, No apparent distress HEENT: Atraumatic, Normocephalic. 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 Negative for: Vulvar lesions NST - FHR Rate Baby A Baseline: 130 Variability:: Moderate Accelerations:: 15 x 15 Decelerations:: None NST Reactive:: Yes FHR Category:: Category I Uterine Activity:: irregular 2-7m Impression/Plan A/P: at 32.6 weeks gestation sent from OB office for non-reactive NST NST in triage reactive, Category I UC 2-7m, but mild and non painful UA sent with +500 leukocytes Augmentin Rx to be sent to pharmacy Hydrate and rest To call if contractions get stronger, decreased FM, or with concerns Follow up as appropriate in OB office
== END 2019-11-22 10:55 | disposition home or self-care (01) ==
LOC: WPOUT 09:37 → OBT 09:38
PROVIDERS: PCP Family Medicine; Visit Provider Obstetrics & Gynecology
DX: O62.9 Abnormality of forces of labor, unspecified (principal); Z3A.32 32 weeks gestation of pregnancy
CPT/HCPCS: 59025; 59050; 81001; 87086; 87088; 99218; G0378

== ENCOUNTER → 2019-12-01 08:46 | Outpatient (CLI) | payer OTHER, SELFPAY ==
[2019-10-20 08:52] VITALS: BMI 18.3
[2019-12-01 08:07] VITALS: BMI 22.1
--- NOTE | 2019-12-01 08:47 | US_ITS ---
STUDY: SECOND AND THIRD TRIMESTER OBSTETRICAL ULTRASOUND - LIMITED REASON FOR EXAM: Female, 34 years old growth LMP: April 05, 2019. PRIOR ULTRASOUND: Comparison is made with prior study dated November 03, 2019. TECHNIQUE: Transabdominal TECHNICAL QUALITY: Adequate. FINDINGS: There is a single intrauterine fetus. The fetus is in a cephalic presentation. There is demonstrated cardiac activity with a heart rate of 148 bpm. There is a normal amniotic fluid volume. The largest amniotic fluid pocket measures 9.42 cm. The amniotic fluid index (CHARLEY) is 25.26 cm. The placenta is posterior in location and is not low lying. There are Grade 1 placental changes. The cervix measures 3.3 cm in length. BIOMETRY: BPD: 8.64 cm: 34 weeks, 6 days HC: 32.15 cm: 36 weeks, 2 days AC: 31.66 cm: 35 weeks, 4 days FL: 6.4 cm: 33 weeks, 0 days Age by LMP: 34 weeks, 1 days. YOBANY by LMP: January 11, 2020. age by prior US: 34 weeks, 5 days. YOBANY by prior US: January 07, 2020. age by current US: 35 weeks, 2 days. YOBANY by current US: January 03, 2020. Estimated weight: 2548 grams, +/- 377 grams, 63 percentile. US/OB Limited With Biometrics IMPRESSION: Single live intrauterine gestation with a mean gestational age of 34 weeks and 5 days. The measurements obtained today fall within the normal expected range. Electronically Signed: David Sprague, at 13:39 EDT , Service support ,
== END ==
PROVIDERS: PCP Family Medicine; Referring Provider Obstetrics & Gynecology; Visit Provider Obstetrics & Gynecology
DX: R89.8 Other abnormal findings in specimens from other organs, systems and tissues (principal); E86.0 Dehydration
CPT/HCPCS: 76816

== ENCOUNTER → 2019-12-06 11:27 | Outpatient (CLI) | payer OTHER, SELFPAY ==
[2019-12-06 11:01] VITALS: BMI 22.1
[2019-12-06 11:37] LABS: Absolute Lymphocyte Count 1.59 X10^3/uL (0.83-4.51); Absolute Neutrophil Count 6.4 X10^3/uL (2.0-7.7); Basophil# 0.05 X10^3/uL; Basophil% 0.6 % (0-1); Eosinophil# 0.04 X10^3/uL; Eosinophils% 0.5 % (0-5); Hematocrit 35.2 % (37-47); Hemoglobin 11.1 g/dL (12.0-15.0); Lymphocyte # 1.59 X10^3/ul (4.0); Lymphocyte % 18.4 % (19-41); Mean Corp Hgb Conc 31.5 g/dL (32-36); Mean Corpuscular Hgb 31.2 pg (27.0-32.0); Mean Corpuscular Volume 98.9 fL (81-99); Mean Platelet Vol. 10.1 fl (6.2-12.0); Monocyte# 0.46 X10^3/uL; Monocyte% 5.3 % (0-10); NRBC Flagged by Analyzer 0 % (0-5); Neutrophil # 6.44 X10^3/uL (2.7-7.7); Neutrophil % 74.3 % (47-70); Platelet Count 177 K/mm3 (150-450); RBC Distribution Width CV 12.1 % (11.6-14.6); RBC Distribution Width SD 43.4 fl (35.1-43.9); Red Blood Count 3.56 M/mm3 (4.2-5.4); White Blood Count 8.7 K/mm3 (4.4-11.0)
== END ==
PROVIDERS: PCP Family Medicine; Referring Provider Obstetrics & Gynecology; Visit Provider Obstetrics & Gynecology
DX: O09.90 Supervision of high risk pregnancy, unspecified, unspecified trimester (principal); Z3A.00 Weeks of gestation of pregnancy not specified
CPT/HCPCS: 36415; 85025

== ENCOUNTER → 2019-12-15 13:09 | Outpatient (CLI) | payer OTHER, SELFPAY ==
[2019-12-15 08:05] VITALS: BMI 22.1
== END ==
PROVIDERS: PCP Family Medicine; Referring Provider Obstetrics & Gynecology; Visit Provider Obstetrics & Gynecology
DX: O09.90 Supervision of high risk pregnancy, unspecified, unspecified trimester (principal); E86.0 Dehydration; Z3A.00 Weeks of gestation of pregnancy not specified
CPT/HCPCS: 87081

== ENCOUNTER → 2019-12-28 09:28 | Outpatient (CLI) | payer OTHER, SELFPAY ==
[2019-10-20 08:52] VITALS: BMI 18.3
[2019-12-26 06:09] VITALS: BMI 22.1
--- NOTE | 2019-12-28 09:29 | US_ITS ---
STUDY: SECOND AND THIRD TRIMESTER OBSTETRICAL ULTRASOUND - LIMITED REASON FOR EXAM: Female, 34 years old GROWTH LMP: April 06, 2019. PRIOR ULTRASOUND: Comparison is made with prior examination dated December 01, 2019. TECHNIQUE: Transabdominal TECHNICAL QUALITY: Adequate. FINDINGS: There is a single intrauterine fetus. The fetus is in a cephalic presentation. There is demonstrated cardiac activity with a heart rate of 165 bpm. There is a normal amniotic fluid volume. The largest amniotic fluid pocket measures 7.5 cm. The amniotic fluid index (CHARLEY) is 21.6 cm. The placenta is anterior in location and is not low lying. There are Grade 2 placental changes. The cervix was not measured due to the head positioning. BIOMETRY: BPD: 8.89 cm: 36 weeks, 0 days HC: 34.0 cm: 39 weeks, 1 days AC: 36.25 cm: 4 weeks, 2 days FL: 7.9 cm: 37 weeks, 3 days Age by LMP: 38 weeks, 0 days. YOBANY by LMP: January 11, 2020. age by prior US: 38 weeks, 2 days. YOBANY by prior US: January 09, 2020. age by current US: 38 weeks, 2 days. YOBANY by current US: January 09, 2020. Estimated weight: 3624 grams, +/- 529 grams, 83 percentile. US/OB Limited With Biometrics IMPRESSION: Single live uterine gestation with a mean gestational age of 38 weeks and 2 days. There has been good interval growth. Electronically Signed: David Sprague, at 15:06 EDT , Service support ,
== END ==
PROVIDERS: PCP Family Medicine; Referring Provider Obstetrics & Gynecology; Visit Provider Obstetrics & Gynecology
DX: R89.8 Other abnormal findings in specimens from other organs, systems and tissues (principal); E86.0 Dehydration
CPT/HCPCS: 76816

== ENCOUNTER 2020-01-04 03:53 | Inpatient (IN) | payer OTHER, SELFPAY ==
[2019-12-26 06:09] VITALS: BMI 22.1
[2020-01-04] VITALS (49 sets, daily range): BP systolic 89–137; BP diastolic 53–85; PULSE 63–119; RESP 16; TEMP 36.4–37.3; O2SAT 87–100; BMI 23.0
[2020-01-04] MEDS: Lactated Ringers 500 ML 999 ML IV ×2 (04:25→06:08)
[2020-01-04 04:50] LABS: Absolute Lymphocyte Count 1.61 X10^3/uL (0.83-4.51); Absolute Neutrophil Count 4.7 X10^3/uL (2.0-7.7); Basophil# 0.04 X10^3/uL; Basophil% 0.6 % (0-1); Eosinophil# 0.07 X10^3/uL; Hematocrit 36.1 % (37-47); Hemoglobin 11.2 g/dL (12.0-15.0); Lymphocyte # 1.61 X10^3/ul (4.0); Lymphocyte % 23.2 % (19-41); Mean Corpuscular Hgb 30.2 pg (27.0-32.0); Mean Corpuscular Volume 97.3 fL (81-99); Mean Platelet Vol. 10.6 fl (6.2-12.0); Monocyte# 0.42 X10^3/uL; NRBC Flagged by Analyzer 0 % (0-5); Neutrophil % 67.6 % (47-70); Platelet Count 170 K/mm3 (150-450); RBC Distribution Width CV 13.5 % (11.6-14.6); RBC Distribution Width SD 47.1 fl (35.1-43.9); Red Blood Count 3.71 M/mm3 (4.2-5.4)
[2020-01-04] MEDS: Lactated Ringers 1,000 ML 200 ML IV (05:30)
[2020-01-04] MEDS: fentaNYL-bupivacaine (epidural) 100 ML BAG EPIDURAL (05:45)
[2020-01-04] MEDS: Cefazolin 2 GM in 0.9% Normal Saline 100 ML IV (07:02)
--- NOTE | 2020-01-04 07:03 | FALS_PTH ---
PATIENT: BELEM DILL LOC: [facility] U#:[id number] AGE/SX: 34/F ROOM: WP003 RE01/04/[address]: Dr. Ofelia River MD : 1985 BED: 1 DIS: 01/05/2020 SPEC #: [id number] RECD: 01/04/20 14:42 STATUS: MAYRA REMo #: [id number] MARINA: 01/04/20 07:[address]: Ofelia River DEPT: SURGICAL PATHOLOGY RECD BY: Manolo Gonzalez ENTERED: 01/05/20 09:13 SP TYPE: FALL TUBES OTHR DR: Dr. Yazan Douglas III, MD Tissues: Fallopian tube Procedures: Surgery Specimen Level II HEADER OPERATION: Tubal ligation PRE-OP DIAGNOSIS: Sterilization TISSUE SUBMITTED: Fallopian tubes, suture in right tube MICROSCOPIC DIAGNOSIS Right and left fallopian tubes, bilateral salpingectomies: Two complete segments of fallopian tubes with no pathologic change. AM:hali 01/08/20 MICROSCOPIC DESCRIPTION Slides are reviewed. GROSS DESCRIPTION Received in fixative is one container labeled with the patient's name and designated bilateral fallopian tubes, right with suture. The specimen consists of two fallopian tubes with an average length of 0.7 cm and has an average diameter of 6.0 cm. Both fallopian tubes have normal fimbriated ends. No mass lesions are identified. Senior Engineering Technician sections are submitted in two cassettes as follows: 1 - right fallopian tube, 2 - left fallopian tube. / AM:hali 01/05/20 TC:5 CPT: 92818 x2
[2020-01-04] MEDS: Oxytocin 30 units/NS 500 ml 30 UNITS/500 ML IV.SOLN 167 UNITS IV (07:55)
--- NOTE | 2020-01-04 08:21 | HP.PCM_ITS ---
- Problem List (1) mentum presentation in left mentoposterior position Status: Acute (2) SROM (spontaneous rupture of membranes) Status: Acute (3) Abnormal genetic test Status: Acute Comment: atypical X chromosome, s/p mfm and genetics consult, declines invasive testing. growth us q 4 weeks. echo normal. Weekly NST through delivery at 39 weeks (4) Anemia affecting Status: Acute Qualifiers: Comment: iron added, repeat cbc WNL (5) Hyperemesis gravidarum Status: Acute Comment: unisom/b6, protonix, zyrtec, zofran. declined steroids, IVFs, alere pumps. (6) Polyhydramnios affecting Status: Acute Comment: plan IOL by 39 weeks. weekly NSTs. growth us q 4 weeks (7) Status: Acute Qualifiers: Comment: NIPT screening done, carrier in past. neg afp screen. anatomy US reviewed. (8) Supervision of high risk , antepartum Status: Acute Comment: PRR YOBANY 01/11/20 girl Edouard Barnett Cheikh History and Physical Date of Admission: 01/04/20 Intake Vital Signs 12/26/19 BMI 22.1 12/25/19 Height 5 ft 5 in 12/25/19 Weight: 137 lb 12/25/19 BP 96/58 L Intake Visit Reasons: 38 WK OB/NST Allergies No Known Allergies Allergy (Verified 12/25/19 09:41) Medications Vits [Prenatabs FA] 1 tab PO DAILY 08/07/15 [History Confirmed 12/25/19] pantoprazole 20 mg tablet,delayed release 20 mg PO DAILY #90 tab 06/30/19 [Rx Confirmed 12/25/19] Cetirizine HCl [Zyrtec] 10 mg PO DAILY 11/22/19 [History Confirmed 12/25/19] Citalopram [Celexa] 10 mg PO DAILY 11/22/19 [History Confirmed 12/25/19] ondansetron HCl 8 mg tablet 8 mg PO BID #60 tab 12/15/19 [Rx Confirmed 12/25/19] Last Menstral Period: 03/26/19 Zika: Zika virus screening: Negative : No PFSH PFSH Medical History Anxiety (Acute) Family History Aunt Colon cancer Grandfather Heart disease Social History (Updated 12/26/19 @ 06:[address] 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 Date Name GA/Weeks Outcome Route Bth Weight Gen Labor Lgth Anesthesia Del Locatn Provider FOB Unknown 2015 [place] 40 live - full term NS VD [place] 09/30/17 [place] 38 live - full term NS VD Male epidural [facility] HPI 38 WK OB/NST: Details: BELEM DILL is a 34 year old at 39 weeks presents with spontaneous rupture of membranes. Upon evaluation patient was 4 cm dilated with a face presentation alternating between mentum anterior and posterior. OB Visit YOBANY Calculator Estimated Delivery Date Method Current WG Current Estimate 01/11/20 Ultrasound #1 37w 5d Other Estimates 12/31/19 LMP (Uncertain) 39w 2d Expected Delivery Route/Plan Labor Preferences- labor support person: Cheikh pain management options preferred: epidural cut cord/dad catch: yes : yes PP control planned: condoms discussed possible routes of delivery and associated risks: [] special requests: [] Specific Issue/Plans flu vaccine: decline tdap vaccine: given rhogam: NA LARC form signed: yes movement and labor precautions reviewed. Problem list reviewed and updated with the most current plan of care details and appropriate orders placed. Relevant counseling for the gestational age provided. Continue routine care and follow up unless otherwise noted in visit notes/problem list details Initial Weight: 117 lb Date EGA Weight BP Urine Prot Glucose FHR FuHt Pres Dilation Effaced St Visit Note 05/17/19 5w 6d 117 lb (+0 oz) 116/82 07/14/19 14w 1d 114 lb 4 oz (-2 lb 12 oz) 109/72 Negative Negative 150 SM- no vb crmaping, nausea and emesis not improved enough for weight gain, IVFs didn't helpp. discussed NIPT results s/p MFM consult. plan additional testing. needs NOB labs 08/11/19 18w 1d 114 lb (-3 lb) 96/66 160 SM- no vb cramping nausea stable, declines IVFS or additional meds. anatomy scan yesterday 09/08/19 22w 1d 120 lb (+3 lb) 102/76 Trace Negative 10/04/19 25w 6d 126 lb (+9 lb) 112/66 Negative Negative 149 26 MH-still with nausea. Did CBC and GCT today. No VB, LOF. Good FM 10/20/19 28w 1d 128 lb (+11 lb) 102/58 Negative Negative 145 28 SM- SM- no vb lof good fm no regular ctx still nauseated but overall doing okay. growwth us in 2 weeks and start testing at 32 11/03/19 30w 1d 133 lb (+16 lb) 102/58 Trace Negative 145 30 SM- no vb lof good fm no regular ctx. 11/17/19 32w 1d 134 lb (+17 lb) 100/62 Negative Negative 147 33 MH-No VB, LOF. Good FM. NST today. 11/22/19 32w 6d 133 lb (+16 lb) 92/72 Trace Negative 130 Equivocal NST with CTX Q2-3 min and noted by patient. To WP further evaluation 12/01/19 34w 1d 136 lb (+19 lb) 130 SM- no vb lof good fm no regular ctx but having some irregular ones 12/15/19 36w 1d 136 lb (+19 lb) 98/60 Negative Negative 130 Cephalic 1.5 SM- no vb lof good fm no regular ctx 12/25/19 37w 4d 137 lb (+20 lb) 96/58 Negative Negative 130 Cephalic 2 SM- no vb lof good fm no regular ctx persistent nausea, membranes swept. ACOG First Trimester First Trimester: Second Trimester Second Trimester: Signs and Symptoms of Labor, Selecting a care provider, Reproductive Life Planning, Care Planning, Tobacco Cessation, Depression/Anxiety and Intimate Partner Violence Third Trimester Third Trimester: Pain Management Plans, Labor support person(s), Immediate Larc, Movement Monitoring and Infant Feeding Yes ; discussed Trial of Labor after Counseling or discussed Circumcision preference Diagnostics Diagnostics Diagnostics Hgb 11.1 g/dL (12.0-15.0) L 12/06/19 Hct 35.2 % (37-47) L 12/06/19 Details: HIV: Urine Culture: Sequential Screen: NIPT Screen: ROS Const Reports system reviewed and no additional complaints, except as docu Card Reports system reviewed and no additional complaints, except as docu Resp Reports system reviewed and no additional complaints, except as docu GI Reports system reviewed and no additional complaints, except as docu, Reports nausea Reports system reviewed and no additional complaints, except as docu Musc Reports system reviewed and no additional complaints, except as docu Exam Const General: cooperative, healthy appearing, comfortable, anxious HENMT Head: normal to inspection Nose: external nose normal Face and sinus: normal facial exam Neck Neck: normal visual inspection, full ROM, no lymphadenopathy Thyroid: thyroid normal Chest Chest palpation & inspection: normal inspection of the chest Resp Effort & Inspection: normal respiratory effort GI Inspection: normal to inspection Palpation: soft, other (gravid uterus) Other: vertex and appropriate size for gestational age Other: Cervical Exam: Extrem General: pedal edema Office Procedures OB NST Non-Stress Test Indications for Monitoring: Yes other (polyhydramnios) Heart Rate Baseline: 130 Heart Rate Variability: moderate Movement: Present Heart Rate Accelerations: Present Decelerations: Absent Contractions: Absent Impression: Yes Reactive Non-Stress Test Category 1 Results POC Urinalysis 2 Dip (Clinic) Office Urine Glucose Negative Last Edit by Shanita Tay on 12/25/19 09:51 Office Urine Protein Negative Last Edit by Shanita Tay on 12/25/19 09:51 Assessment & Plan Problems 1. Polyhydramnios affecting O40.9XX0 2. Anemia affecting in third trimester O99.013 3. Supervision of high risk , antepartum O09.90 4. Abnormal genetic test R89.8 5. Hyperemesis gravidarum O21.0 6. 37 weeks gestation of Z3A.37 Patient admitted and epidural placed. Attempts made to rotate the head were unsuccessful and decision was made to proceed with low transverse and bilateral salpingectomy. She requested sterilization
[2020-01-04] MEDS: Sodium Citrate/Citric Acid 30 ML UDC PO (08:24)
--- NOTE | 2020-01-04 08:25 | OP.PCM_ITS ---
Problem List (1) mentum presentation in left mentoposterior position Status: Acute (2) SROM (spontaneous rupture of membranes) Status: Acute (3) Abnormal genetic test Status: Acute Comment: atypical X chromosome, s/p mfm and genetics consult, declines invasive testing. growth us q 4 weeks. echo normal. Weekly NST through delivery at 39 weeks (4) Anemia affecting Status: Acute Qualifiers: Comment: iron added, repeat cbc WNL (5) Hyperemesis gravidarum Status: Acute Comment: unisom/b6, protonix, zyrtec, zofran. declined steroids, IVFs, alere pumps. (6) Polyhydramnios affecting Status: Acute Comment: plan IOL by 39 weeks. weekly NSTs. growth us q 4 weeks (7) Status: Acute Qualifiers: Comment: NIPT screening done, carrier in past. neg afp screen. anatomy US reviewed. (8) Supervision of high risk , antepartum Status: Acute Comment: PRR YOBANY 01/11/20 girl Edouard Barnett Cheikh Delivery Classification: ANTONY Final YOBANY: 01/11/20 Gestational age: 39 Weeks and 0 Days Type of Anesthesia:: Spinal Special Medications: none Implants Used: none Date of Procedure: 01/04/20 Pre-Operative Diagnosis: face presentation Post-Operative Diagnosis: same Indications for : Desires elective sterilization, Malpresentation Description of Procedure: The patient was placed in the dorsal supine position with leftward tilt. Patient was prepped and draped in the normal sterile fashion. Pfannenstiel skin incision was made with the scalpel and carried through to the underlying layer of fascia with the scalpel. Fascia was nicked in the midline and the incision extended laterally. The rectus bellies were dissected off superiorly and inferiorly with out complication both sharply and bluntly. The peritoneum was entered digitally. The incision was stretched and a low transverse uterine incision was made with the scalpel. The 's head was delivered atraumatically followed by the anterior and posterior shoulders without complication the rest of the delivered. The cord was clamped and cut and the was handed off to awaiting nurse. The placenta was delivered spontaneously immediately following and was noted to be intact and have a three- vessel cord. The uterus was exteriorized cleared of all clots and debris, and the incision was closed in a double layer closure using #1 Monocryl. The ovaries and fallopian tubes were noted to be within normal limits. Patient had desired sterilization and was counseled preoperatively regarding irreversibility and permanency. Therefore bilateral fallopian tubes were elevated and transected across using a LigaSure device starting proximally to distally without complication the entire fallopian tubes were removed. The uterus was returned to the maternal abdomen and gutters were cleared of all clots and debris. The peritoneum was closed with 3-0 Monocryl in a running fashion. Gloves were changed prior to fascial closure. Fascia was closed with 0 PDS in a running fashion. Subcutaneous tissue was copiously irrigated and the skin was closed with 3-0 Monocryl in a subcuticular fashion. Mepilex dressing was applied without complication. Patient was taken to recovery in stable condition. Amniotic Membrane Rupture Type: Artificial Amniotic Fluid Description: Moderate meconium Placenta Disposition: [facility] Drain: [place] to straight drain Cord Entanglement: None Esitmated Blood Loss (ml): 700 Gender: Female Delayed cord clamping: Yes Antibiotic Given: Ancef 2 grams IV x1 Pt instructed on risks of surgery: Bleeding, Anesthesia Risks, Infection, Need for Future C-Sections, Permanency, Injury to surrounding structure(s) including bowel and bladder Complications: None - Admit VTE Documentation VTE Present on Admission: No VTE Mechan Device Prophylaxis: SCD's Multi Select Codes - Urinary/Genital Urinary/Genital CPT Codes: 86409 C/S+TL - bilateral salpingectomy, [address] [facility]
[2020-01-04] MEDS: Senna/Docusate Sodium 1 Tablet PO (10:25)
[2020-01-04] MEDS: Loratadine 10 MG Tablet PO (10:25)
[2020-01-04] MEDS: Pantoprazole Sodium 20 MG Tablet PO (10:26)
[2020-01-04] MEDS: Citalopram 20 MG Tablet PO (10:42)
[2020-01-04] MEDS: Acetaminophen 500 MG Tablet 1000 MG PO ×3 (10:42→22:05)
[2020-01-04] MEDS: Lactated Ringers 1,000 ML 100 ML IV (11:18)
[2020-01-04] MEDS: Ketorolac 30 MG/ML Syringe IV ×2 (14:01→19:55)
[2020-01-04 14:44] LABS: Pathology Specimen OB SEE PATHOLOGY REPORT
[2020-01-04] MEDS: 0.9% Saline Lock 10 ML Syringe IV (16:50)
[2020-01-04] MEDS: DiphenhydrAMINE 25 MG Capsule PO (19:54)
[2020-01-05] MEDS: Ketorolac 30 MG/ML Syringe IV ×2 (02:03→08:31)
[2020-01-05 04:00] VITALS: BP 96/53; PULSE 80; RESP 16; TEMP 36.7
[2020-01-05] MEDS: Acetaminophen 500 MG Tablet 1000 MG PO ×2 (04:22→10:43)
[2020-01-05 05:59] LABS: Hematocrit 26.4 % (37-47); Hemoglobin 8.2 g/dL (12.0-15.0); Mean Corp Hgb Conc 31.1 g/dL (32-36); Mean Corpuscular Hgb 30.1 pg (27.0-32.0); Mean Corpuscular Volume 97.1 fL (81-99); Mean Platelet Vol. 10.3 fl (6.2-12.0); Platelet Count 126 K/mm3 (150-450); RBC Distribution Width CV 13.7 % (11.6-14.6); RBC Distribution Width SD 46.5 fl (35.1-43.9); Red Blood Count 2.72 M/mm3 (4.2-5.4)
[2020-01-05 08:25] VITALS: BP 91/59; PULSE 60; RESP 18; TEMP 36.8; O2SAT 100
[2020-01-05] MEDS: 0.9% Saline Lock 10 ML Syringe IV (08:31)
--- NOTE | 2020-01-05 09:34 | PN.OBGYN_ITS ---
Patient Problems: Active and Suspected Problems (Last Reviewed 12/25/19 @ 09:41 by Shanita Tay) mentum presentation in left mentoposterior position (Acute) SROM (spontaneous rupture of membranes) (Acute) Subjective: doing well no complaints pain controlled no CP SOB N V ambulating well tolerating po lochia moderate, going well - Physical Exam Vitals/I&O's: Vital Signs Temp Pulse Resp BP Pulse Ox 98.2 F 60 18 91/59 L 100 01/05/20 08:25 01/05/20 08:25 01/05/20 08:25 01/05/20 08:25 01/05/20 08:25 Oxygen Delivery Method Room Air Weight: 138 lb 7.205 oz Body Mass Index (BMI) 23.0 Intake and Output for Last 24 Hours 01/03/20 01/04/20 01/05/20 23:59 23:59 23:59 Intake Total 3990.00 / 3990.00 Output Total 3700 / 3700 1050 / 1050 Balance 290.00 / 290.00 -1050 / -1050 General: Alert, Oriented x3 Laboratory Results 01/05/20 05:50: WBC 10.0, RBC 2.72 L, Hgb 8.2 L, Hct 26.4 L, MCV 97.1, MCH 30.1, MCHC 31.1 L, RDW Std Deviation 46.5 H, RDW Coeff of Jb 13.7, Plt Count 126 L, MPV 10.3 Current Medications Acetaminophen (Tylenol) 1,000 mg PO Q6H [facility] Last Admin: 01/05/20 04:22 Dose: 1,000 mg Documented by: Bisacodyl (Dulcolax) 10 mg RECTAL UD PRN PRN Reason: If no BM Citalopram Hydrobromide (Celexa) 20 mg PO DAILY [facility] Last Admin: 01/04/20 10:42 Dose: 20 mg Documented by: Hydrocortisone (Hytone) 1 applic TOPICAL TID PRN PRN; Protocol PRN Reason: Discomfort Naloxone HCl 4 mg/ Dextrose 504 mls @ 0 mls/hr IV .Q0M PRN; Protocol PRN Reason: Respiratory depression Naloxone HCl 4 mg/ Dextrose 504 mls @ 0 mls/hr IV .Q0M PRN; Protocol PRN Reason: To maintain Resp. rate >10 Loratadine (Claritin) 10 mg PO DAILY [facility] Last Admin: 01/04/20 10:25 Dose: 10 mg Documented by: Methylergonovine Maleate (Methergine) 0.2 mg IM X1 PRN PRN Reason: Uterine Atony Naloxone HCl (Narcan) 0.02 mg IV Q1M PRN PRN Reason: RR <10 and pt unresponsive Naloxone HCl (Narcan) 0.02 mg IV Q1M PRN PRN Reason: RR< 10 AND PT UNRESPONSIVE Naproxen (Naprosyn) 500 mg PO Q8 [facility] Last Admin: 01/05/20 06:10 Dose: Not Given Documented by: Ondansetron HCl (Zofran) 4 mg IV Q4H PRN PRN PRN Reason: Nausea Oxycodone HCl (Oxyir) 5 - 10 mg PO Q4H PRN PRN PRN Reason: Pain Score 4-10/10 Pantoprazole Sodium (Protonix) 20 mg PO DAILY [facility] Last Admin: 01/04/20 10:26 Dose: 20 mg Documented by: Prochlorperazine Edisylate (Compazine Iv) 10 mg IV Q6H PRN PRN PRN Reason: NAUSEA Senna/Docusate Sodium (Senokot-S, Lizy-Colace) 0 tablet PO DAILY [facility] Last Admin: 01/04/20 10:25 Dose: 2 tablet Documented by: Simethicone (Mylicon) 80 mg PO PCHS PRN PRN Reason: Indigestion/stomach pain Sodium Chloride () 5 - 15 ml IV UD PRN PRN Reason: SALINE FLUSH Last Admin: 01/05/20 08:31 Dose: 10 ml Documented by: Medical Necessity - Tobacco Use Smoking Status: Never smoker Assessment/Plan All Active Problems (Last Reviewed 12/25/19 @ 09:41 by Shanita Tay) mentum presentation in left mentoposterior position (Acute) SROM (spontaneous rupture of membranes) (Acute) Polyhydramnios affecting (Acute) Anemia affecting (Acute) Supervision of high risk , antepartum (Acute) Abnormal genetic test (Acute) Hyperemesis gravidarum (Acute) (Acute) 32 weeks gestation of (Resolved) Nausea/vomiting in (Resolved) Non-reactive NST (non-stress test) (Resolved) Supervision of normal (Resolved) s/p LTCS PPD # 1 1. routine post care 2. breast feeding- support given 3. rh positive 4. rubella immune
--- NOTE | 2020-01-05 09:35 | DCINST_ITS ---
Discharge Diet: No Restrictions Discharge Activity: May Not Drive - for 2 weeks, May not drive while taking narcotic pain medications., May Shower, May Take a Tub Bath - in 7 days May resume sexual activity in: 4-6 weeks Lifting Restrictions: 20 pounds Additional Activity Instructions:: Nothing in the vagina for 4-6 weeks. You may return to work/school in 6 weeks. Call your doctor if your incision/area has: Continuous Slow Oozing, Sudden Increased Bleeding, Increased Pain/ Swelling, Increased Redness, Foul Smelling Discharge Call your doctor if you observe: Fever of 101 or Higher, Using more than one pad per hour - for 2 hours Suture Line Care: Avoid Pulling/Pushing, Avoid Pinching/Bending Cleanse incision/area with: Keep Dressing Clean & Dry Additional Instructions: If you experience any of the following, contact your healthcare provider. * Bleeding that soaks a pad every hour for 2 hours * Fever 100.4 or higher * Unrelieved incision or abdominal pain * Swelling, redness, discharge or bleeding from your incision or episiotomy site * Your incision begins to separate * Problems urinating (including inability to urinate or burning while urinating). * Visual changes * Severe headache * Flu-like symptoms * Pain or redness in one of both of your breasts * Pain, warmth, tenderness or swelling in your legs, especially the calf area * Frequent nausea and vomiting * Symptoms of depression or anxiety If you experience any of the following, call 911 or go to the nearest Emergency Room. * Chest pain * Problems breathing * Seizure activity * Partial or complete paralysis of a body part, slurred speech, weakness or drooping of the face, or a sudden inability to walk or hold your balance Allergies/Adverse Reactions: Allergies No Known Allergies Allergy (Verified 01/04/20 04:29) Medications to take at Discharge Vits [Prenatabs FA] 1 tab PO DAILY 08/07/15 Cetirizine HCl [Zyrtec] 20 mg PO DAILY 11/22/19 Citalopram [Celexa] 10 mg PO DAILY 11/22/19 ondansetron HCl 8 mg tablet 8 mg PO BID #60 tab 12/15/19 Pantoprazole Sodium 20 mg PO DAILY 01/04/20 Naproxen [Naprosyn] 250 - 500 mg PO Q8H PRN PRN #30 tab 01/05/20 Oxycodone HCl/Acetaminophen [Percocet 5-325] 1 - 2 tablet PO Q6H PRN PRN 7 Days #15 tablet 01/05/20 The following prescriptions were given: Naproxen [Naprosyn] 250 - 500 mg PO Q8H PRN PRN #30 tab PRN Reason: MILD PAIN Transmission Status: Pending to [facility] Oxycodone HCl/Acetaminophen [Percocet 5-325] 1 - 2 tablet PO Q6H PRN PRN 7 Days #15 tablet PRN Reason: Pain Transmission Status: Sent to [facility] Follow-Up: Call to make an appointment with your doctor for an incision check in 1-2 weeks. You will also need a 6 week post- follow up appointment. Test results from this visit will be discussed in further detail at your follow- up appointment, if applicable. Please Follow Up With: Ofelia River MD - Call to make an appointment for an incision check in 1-2 [phone] When: You will need a post- check in 6 weeks. Primary Care Physician: Yazan Douglas III, MD [Primary Care Provider] -
[2020-01-05] MEDS: Loratadine 10 MG Tablet PO (10:41)
[2020-01-05] MEDS: Citalopram 20 MG Tablet PO (10:41)
[2020-01-05] MEDS: Senna/Docusate Sodium 1 Tablet PO (10:41)
[2020-01-05] MEDS: Pantoprazole Sodium 20 MG Tablet PO (10:41)
[2020-01-05] MEDS: Naproxen 250 MG Tablet 500 MG PO (14:09)
[2020-01-05 14:10] VITALS: BP 97/62; PULSE 82; RESP 16; TEMP 36.8; O2SAT 98
== END 2020-01-05 15:45 | disposition home or self-care (01) | DRG 785 ==
PROVIDERS: Admitting Provider Obstetrics & Gynecology; PCP Family Medicine; Referring Provider Obstetrics & Gynecology; Visit Provider Obstetrics & Gynecology
DX: O32.3XX0 Maternal care for face, brow and chin presentation, not applicable or unspecified (principal); O40.3XX0 Polyhydramnios, third trimester, not applicable or unspecified; O21.0 Mild hyperemesis gravidarum; O77.0 Labor and delivery complicated by meconium in amniotic fluid; O99.02 Anemia complicating childbirth; R89.8 Other abnormal findings in specimens from other organs, systems and tissues; Z37.0 Single live birth; Z30.2 Encounter for sterilization; Z3A.39 39 weeks gestation of pregnancy
CPT/HCPCS: 59025; 59050; 76815; 85025; 85027; 86850; 86900; 86901; 87635; 88302; 99218; J7120; A4216; G0378; J2405; U0003

== ENCOUNTER → 2022-02-25 | Outpatient (CLI) | payer OTHER, SELFPAY ==
[2022-02-25 09:36] LABS: Absolute Lymphocyte Count 2.09 X10^3/uL (0.83-4.51); Absolute Neutrophil Count 1.8 X10^3/uL (2.0-7.7); Basophil# 0.08 X10^3/uL; Basophil% 1.8 % (0-1); Eosinophil# 0.13 X10^3/uL; Eosinophils% 2.9 % (0-5); Hematocrit 41.6 % (37-47); Hemoglobin 13.4 g/dL (12.0-15.0); Lymphocyte # 2.09 X10^3/ul (0.83-4.51); Lymphocyte % 47.4 % (19-41); Mean Corp Hgb Conc 32.2 g/dL (32-36); Mean Corpuscular Volume 96.3 fL (81-99); Mean Platelet Vol. 9.8 fl (6.2-12.0); Monocyte# 0.29 X10^3/uL; Monocyte% 6.6 % (0-10); NRBC Flagged by Analyzer 0 % (0-5); Neutrophil # 1.81 X10^3/uL (2.7-7.7); Neutrophil % 41.1 % (47-70); Platelet Count 235 K/mm3 (150-450); RBC Distribution Width CV 11.8 % (11.6-14.6); RBC Distribution Width SD 41.5 fl (35.1-43.9); Red Blood Count 4.32 M/mm3 (4.2-5.4); White Blood Count 4.4 K/mm3 (4.4-11.0)
[2022-02-25 10:23] LABS: Estradiol 34.5 pg/mL; Follicle Stimulating Hormone 4.3 mIU/mL; Prolactin 4.8 ng/mL; Thyroid Stim Hormone (TSH) 1.02 uIU/mL (0.358-3.74)
[2022-03-03 10:51] LABS: HPV APTIMA, High Risk Negative (Negative)
== END | disposition home or self-care (01) ==
LOC: LAB 08:48
PROVIDERS: PCP Family Medicine; Referring Provider Nurse Practitioner Women's Health; Visit Provider Nurse Practitioner Women's Health
DX: N91.4 Secondary oligomenorrhea (principal); Z13.29 Encounter for screening for other suspected endocrine disorder
CPT/HCPCS: 36415; 82670; 83001; 84146; 84443; 85025; 87624; 88175; G0145

== ENCOUNTER → 2023-01-26 | Outpatient (CLI) | payer OTHER, SELFPAY ==
--- NOTE | 2023-01-26 11:42 | RAD_ITS ---
EXAM: XR CERVICAL SPINE, 4 OR 5 VIEWS CLINICAL INDICATION: pain, decrease motion. paresthesias L arm. TECHNIQUE: Frontal, lateral and bilateral oblique views of the cervical spine. COMPARISON: No relevant prior studies available. FINDINGS: VERTEBRAE: Loss of the normal cervical lordosis. Preserved vertebral body height. No acute fracture. No spondylolisthesis. No significant facet arthropathy. DISC SPACES: Mild disc height loss at C5/6 and C6/7. No significant osseous encroachment of the neural foramen on the oblique views. SOFT TISSUES: Unremarkable. No prevertebral soft tissue widening. LUNG APICES: Clear. RAD/Cerv Spine 4 or 5 Views IMPRESSION: 1. Loss of the normal cervical lordosis. This may be due to muscular spasm or positioning. 2. Mild disc height loss at C5/6 and C6/7. Electronically Signed: Ivan Richards MD at 5:19 EDT ,
== END | disposition home or self-care (01) ==
LOC: RAD 11:40
PROVIDERS: PCP Family Medicine; Referring Provider Family Medicine; Visit Provider Family Medicine
DX: S16.1XXA Strain of muscle, fascia and tendon at neck level, initial encounter (principal)
CPT/HCPCS: 72050

== ENCOUNTER → 2023-02-06 | Outpatient (CLI) | payer OTHER, SELFPAY ==
--- NOTE | 2023-02-06 10:09 | CT_ITS ---
STUDY: CT CERVICAL SPINE WITHOUT CONTRAST REASON FOR EXAM: Female, 37 years old. Neck pain and headache, worse on the left side than the right. RADIATION DOSAGE (If Supplied By Facility): CTDIvol = ( 12.95 ) mGy, DLP = ( 324.24 ) mGycm TECHNIQUE: High resolution transaxial imaging was performed without contrast material. Sagittal and coronal images were reconstructed. Individualized dose optimization techniques were used for this CT. COMPARISON: Plain film study from 01/26/2023 FINDINGS: Normal craniovertebral junction. Normal anterior atlantoaxial articulation. Normal odontoid process. There is straightening of the normal cervical lordosis, likely positional or due to pain. Normal vertebral bodies and posterior osseous elements. C2-3: Normal endplates. Normal disc height and morphology. Normal central canal and intervertebral neuroforamina. C3-4: Normal endplates. Normal disc height and morphology. Normal central canal and intervertebral neuroforamina. C4-5: Normal endplates. Normal disc height and morphology. Normal central canal and intervertebral neuroforamina. C5-6: Normal endplates. Disc space narrowing with subtle uncovertebral spurs. No central canal stenosis, mild bilateral foraminal narrowing due to facet joint hypertrophy. C6-7: Normal endplates. Disc space narrowing with subtle uncovertebral spurs. No central canal stenosis, mild bilateral foraminal narrowing due to facet joint hypertrophy. C7-T1: Normal endplates. Normal disc height and morphology. Normal central canal and intervertebral neuroforamina. Normal visualized soft tissue structures. CT/Spine Cervical without Contras IMPRESSION: Mild degenerative changes at C5-6 and C6-7, otherwise unremarkable cervical spine. Electronically Signed: Minesh Potter MD at 15:00 EDT ,
== END | disposition home or self-care (01) ==
LOC: CT 10:07
PROVIDERS: PCP Family Medicine; Referring Provider Family Medicine; Visit Provider Family Medicine
DX: M47.812 Spondylosis without myelopathy or radiculopathy, cervical region (principal)
CPT/HCPCS: 72125

== ENCOUNTER → 2023-03-10 | Outpatient (CLI) | payer OTHER, SELFPAY ==
--- NOTE | 2023-03-10 14:34 | US_ITS ---
STUDY: ULTRASOUND BREAST - LEFT REASON FOR EXAM: Female, 38 years old. Left breast tingling/fullness. TECHNIQUE: Axial and longitudinal images of the LEFT breast were performed with a high resolution ultrasound transducer. # OF IMAGES: 17 COMPARISON: Comparison is made with prior mammogram done earlier in the day. FINDINGS: LEFT Breast: The the medial and retroareolar region of the breast was examined by ultrasound. No sonographic abnormality is seen. US/Breast Limited Unilateral IMPRESSION: No sonographic abnormality is seen. ASSESSMENT CATEGORY: BIRADS Category 1: Negative. A letter regarding these results will be sent to the patient by the facility within 30 days. Electronically Signed: David Sprague MD at 13:42 EDT ,
--- NOTE | 2023-03-10 14:34 | BI_ITS ---
MAMMOGRAPHY - BILATERAL DIAGNOSTIC REASON FOR EXAM: Female, 38 years old. Pulling sensation in the left breast. PERTINENT HISTORY: TECHNIQUE: Digital bilateral breast anabella (3D mammographic acquisition) in the CC and MLO projections. 2-D mediolateral oblique (MLO) and craniocaudad (CC) views of both breasts were obtained. CAD: Full Field Digital Mammography with Computer Added Detection was performed. COMPARISON: None. Baseline examination. FINDINGS: Breast Composition: The breasts are extremely dense, which lowers the sensitivity of mammography. There are no dominant masses or suspicious calcifications. No other significant abnormalities are identified. BI/DIAG MAMM W/CAD, BILAT IMPRESSION: Negative diagnostic mammogram. Correlation with sonogram of the area of pulling sensation is recommended for further evaluation. ASSESSMENT CATEGORY: BIRADS Category 0: Incomplete. Need additional imaging evaluation. A letter regarding these results will be sent to the patient by the facility within 30 days. Approximately 10% of breast cancers are not detected by mammography. A normal mammogram should not delay biopsy of a clinically suspicious abnormality. Electronically Signed: David Sprague MD at 15:14 EDT ,
== END | disposition home or self-care (01) ==
LOC: OPBI 14:33
PROVIDERS: PCP Family Medicine; Referring Provider Nurse Practitioner Women's Health; Visit Provider Nurse Practitioner Women's Health
DX: N60.12 Diffuse cystic mastopathy of left breast (principal)
CPT/HCPCS: 76642; 77066

== ENCOUNTER 2023-03-17 09:00 | Outpatient (RCR) | payer OTHER, SELFPAY ==
--- NOTE | 2022-12-30 09:32 | HP.PTEVAL_ITS ---
Patient's Visit Information Visit Information Visit Information: BELEM DILL is a 37 year old F referred to Physical Therapy by Dr. Rsahard Byrne MD with a diagnosis of LEFT TRAP STRAIN AND RADIAL NEUROPATHY. Date of Evaluation: 12/30/22 Physical Therapist: Jayde Hi, PT, Cert MDT Visit Plan Frequency: 2-3x /Week Duration: 4-6 Weeks Plan: BEGIN BY FOCUSING ON MODALITIES AND RELAXATION OF CERVICAL MUSCULARURE WITH US, STM AND TRACTION. START MANUALLY WITH TRACTION AND PROGRESS TO MECHAICAL INDICATED. CONSIDER DRY NEEDLING. POSTURE CORRECTION/STRENGTHENING, INSTRUCTION IN APPROPRIATE BODY MECHANICS AND ACTIVITY MODIFICATIONS. RAUL UE ROM, STRETCHING AND STRENGTHENING. HEP INSTRUCTION. 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 Disability: NO Present symptoms: RAUL NECK PAIN LEFT > RIGHT. CONSTANT NUMBNESS AND TINGLING IN L THUMB. INTERMITTENT NUMBNESS AND TINGLING OF ENTIRE LEFT UE. NO R UE SX'S. L UE WEAKNESS. Present since: NECK ISSUES FOR A LONG TIME BUT THE L UE NUMBNESS AND TINGLING STARTED MIDDLE OF OCTOBER 2022 Pain Scale: Worst - 5/10 Least - 1/10 Currently: 06/30 Commenced as a result of: PAINTING DECK - NOTICED IT A DAY OR TWO AFTER Symptoms at onset: NUMBNESS IN THUMB Worse: USING NECK MASSAGER AND FINDS THE EXACT RIGHT SPOT IN L NECK. REACHING WITH L UE CAUSES L UE NUMBNESS AND TINGLING. SLOUCHING Better: TYLONOL, IBUPROFEN, HEAT AND COLD. SITTING UP STRAIGHT. Disturbed sleep: SOMETIMES Previous history/Previous treatment: NECK ISSUES ON AND OFF FOR A LONG TIME THAT FLARES WITH EXTRA ACTIVITY AND GETS BETTER WITH TIME. TRIGGER POINT INJECTIONS L UPPER TRAP REGION ABOUT 10-12 YEARS AGO WITH BENEFIT. ALSO HAD A MASSAGE AT THAT TIME THAT RELIEVED IT. HAD BEEN DOING BAKING AND LIFTING THAT CAUSED IT. This episode: PT CONSULT Dizziness: NO Tinnitis: NO Nausea: NO Shortness of Breath: NO Difficulty Swollowing: NO Gait: NORMAL Accidents: NO Unexplained weight loss: NO Imaging: NO PMH/Recent major surgery: UNREMARKABLE PLOF (Prior Level of Function): UNLIMITED Objective Objective: Sitting Posture/Standing Posture: FAIR. L SHLD ANTERIOR COMPARED TO RIGHT. Active Correction of posture: *BETTER*. SLOUCHING PRODUCES L UE NUMBNESS AND TINGLING. SITTING ERECT alleviates L UE SX'S EXCEPT THUMB. SITTING WITH SUPPORT IN LOW BACK AND RELAXING NECK AND UPPER BODY MUSCULATURE IMMEDIATELY STARTED TO REDUCE C/O L THUMB NUMBNESS AND CONTINUED TO GET BETTER WITH TIME UNTIL IT WAS NEARLY GONE. 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 RIGHT UE 5/5. L UE: SHLD 4-/5, ELBOW 4/5, WRIST 4/5. Reflexes: R UE 1/3. UNABLE TO ELICIT L UE DTR'S. Dural Signs: POSITIVE L UE. Cervical Mvmt Loss: Flex: NIL - INCREASES L UT PAIN Pro: NIL - IT HURTS MY NECK. PATIENT POINTS TO LEFT UT AREA. Ext: NIL - NE Ret: MIN TO MOD - INCREASES L UT PAIN. RSB: MIN - INCREASES RAUL NECK PAIN LSB: MIN - INCREASES L NECK PAIN R Rot: NIL - NE L Rot: MIN - FEELS TIGHT BUT IT DOESN'T HURT. AFTER CERVICAL ROM TESTING SX'S WERE NO WORSE A RESULT. Postural strength: GOOD Palpation: NO ACUTE UPPER THORACIC OR CERVICAL REGION TENDERNESS BUT PATIENT REPORTS IF SHE PUSHES REALLY HARD IN JUST THE RIGHT SPOT IN HER L UT REGION IT SHOOTS PAIN DOWN HER ARM. OTHER: CERVICAL DISTRACTION IN SITTING alleviates C/O L NECK AND L UE SX'S EXCEPT NE ON THUMB. TREATMENT: NEUROMUSCULAR REEDUCATION - RETRAINING OF MVMT AND POSTURE FOR SITTING, LYING AND STANDING ACTIVITIES. PATIENT WAS REALLY HAPPY AT DEPARTURE DUE TO L THUMB NUMBNESS AND TINGLING BEING ALMOST COMPLETELY GONE. Balance/Special Test Scores Oswestry Neck Score: 11 Goals Goal 1:: DECREASE C/O NECK AND L UE SX'S. Goal Time Frame: 4-6 Weeks Goal 2:: IMPROVE PERSONAL CARE, READING, SLEEP, WORK, DRIVING AND RECREATIONAL FUNCTION Goal Time Frame: 4-6 Weeks Goal 3:: INSTRUCT IN PROPHYLAXIS Goal Time Frame: 4-6 Weeks Anticipated Interventions Patient/Client Instruction: Educate patient on: Condition, Plan of Care and Risk Factors For the Purpose of:: To improve self management Therapeutic Exercise to Include: Strength training, Body mechanics, Postural training, Flexibilty training, Neuromotor development and Scapular Strength/Stabilization For the Purpose of:: To decrease pain, To increase ROM, To improve muscle performance and motor function, To increase tolerance to activity/condition/position and To improve ability of physical actions for home/community/work/leisure Manual Therapy Techniques to Include: Functional dry needling and Soft tissue mobilization Comment: CONSIDER DRY NEEDLING For the Purpose of:: To decrease pain, To increase ROM and To improve nutrient delivery to tissue TENS: Yes IF ES: Yes Cryotherapy (ice pack, ice massage): Yes Thermo therapy (hot pack): Yes Ultrasound (thermal/non thermal): Yes Intermittent cervical traction: Yes For the Purpose of:: To decrease pain, To increase ROM and To improve nutrient delivery to tissue Text: Thank you for the opportunity to evaluate your patient. For Medicare and Medicare HMO plans, please review the plan of care and approve it. It will need to be FAXED BACK to us at [phone] for Medicare purposes. For Medicare only, by signing this I certify the plan of care. Please let me know if there are questions or concerns regarding this plan of care. Physician Signature: Date:
--- NOTE | 2023-01-22 15:56 | HP.PTREVAL ---
Re-Evaluation Intro: Dr. Rashard Heller MD, It has been my pleasure to treat BELEM DILL over the last 9 visits for LEFT TRAP STRAIN AND RADIAL NEUROPATHY. Please see the progress note below for an update on the physical therapy plan of care! Subjective Subjective: PATIENT REPORTS THERE ISN'T NUMBNESS IN HER THUMB ANYMORE AND THERE ISN'T ANY NUMBNESS OR TINGLING IN HER ARM WITH MVMTS ANYMORE. OCCASSIONAL MILD L SHLD PAIN AND INTERMITTENT NECK PAIN. NECK PAIN STILL GETTING UP TO 6/10 WITH THINGS LIKE LIFTING HEAVY THINGS, THROWING A BASEBALL, BATTING WITH A RAQUET OR PAINTING. INTERMITTENT SEGURA'S. PATIENT REPORTS SHE IS PRETTY MUCH BACK TO HER NORMAL REPORTING SHE HAS BEEN TOLERATING THE PAIN SHE HAS NOW FOR YEARS. Objective Objective/Function: PATIENT WAS SEEN TODAY FOR RE-ASSESSMENT OF PROGRESS TOWARD THE SET PT GOALS AND THE NEED FOR FURTHER PHYSICAL THERAPY VS READINESS FOR DISCHARGE. PATIENT HAS RESPONDED VERY WELL TO PT AND L UE NUMBNESS AND TINGLING IS GONE NOW BUT UNDERLYING CHRONIC NECK AND L SHLD PAIN PERSISTS. PATIENT EXPRESSES CONCERN ABOUT THIS DUE TO PARENT WITH RA AND BOTH PARENTS HAVING HISTORY OF ACDF. 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 THIS IS AN IMPROVEMENT FROM INITIAL EVAL. RIGHT UE 5/5. L UE: SHLD 4/5, ELBOW 5/5, WRIST 5/5. Dural Signs: NEGATIVE RAUL UE'S. Cervical Mvmt Loss: Flex: NIL - INCREASES L UT PAIN Pro: NIL - NO PAIN Ext: NIL - NE Ret: MIN - NE RSB: MIN - INCREASES R NECK PAIN LSB: MIN - INCREASES L NECK PAIN R Rot: NIL - NE L Rot: MIN - L NECK PAIN. PATIENT REPORTS SLIGHT INCREASED NECK PAIN AFTER CERVICAL ROM TESTING TODAY. Plan Plan Plan: CONTINUE PT PER POC IF RECOMMENDED BY DR. HELLER AFTER FOLLOW UP WEDNESDAY. PATIENT AGREEABLE. MODALITIES AND RELAXATION OF CERVICAL MUSCULATURE WITH US, STM AND TRACTION. POSTURE CORRECTION/STRENGTHENING, INSTRUCTION IN APPROPRIATE BODY MECHANICS AND ACTIVITY MODIFICATIONS. RAUL UE ROM, STRETCHING AND STRENGTHENING. HEP INSTRUCTION. CONSIDER THE FOLLOWING EX'S: REP RET IN SITTING REP RET IN LYING SCAP SQUEEZES DEEP NECK FLEXOR LIFT PRONE W'S UE WALL SLIDES PRONE ROWS UE TBAND WALL WALKS ANTERIOR/MIDDLE SCALENE STRETCH UPPER TRAP STRETCH LEVATOR SCAPULAE STRETCH CHEST/PEC MAJOR AND MINOR STRETCH Balance/Gait/Functional tests Balance/Special Test Scores Oswestry Neck Score: 10 Goals Goals Goal 1:: DECREASE C/O NECK AND L UE SX'S. Goal Time Frame: 4-6 Weeks Goal Progress: Progressing Goal 2:: IMPROVE PERSONAL CARE, READING, SLEEP, WORK, DRIVING AND RECREATIONAL FUNCTION Goal Time Frame: 4-6 Weeks Goal Progress: Progressing Goal 3:: INSTRUCT IN PROPHYLAXIS Goal Time Frame: 4-6 Weeks Goal Progress: Progressing Anticipated Interventions Anticipated Interventions Patient/Client Instruction: Educate patient on: Condition, Plan of Care and Risk Factors For the Purpose of:: To improve self management Therapeutic Exercise to Include: Strength training, Body mechanics, Postural training, Flexibilty training, Neuromotor development and Scapular Strength/Stabilization For the Purpose of:: To decrease pain, To increase ROM, To improve muscle performance and motor function, To increase tolerance to activity/condition/position and To improve ability of physical actions for home/community/work/leisure Manual Therapy Techniques to Include: Functional dry needling and Soft tissue mobilization Comment: CONSIDER DRY NEEDLING For the Purpose of:: To decrease pain, To increase ROM and To improve nutrient delivery to tissue TENS: Yes IF ES: Yes Cryotherapy (ice pack, ice massage): Yes Thermo therapy (hot pack): Yes Ultrasound (thermal/non thermal): Yes Intermittent cervical traction: Yes For the Purpose of:: To decrease pain, To increase ROM and To improve nutrient delivery to tissue Re-Evaluation Ending Re-evaluation ending: Please do not hesitate to contact me at [phone] by phone or if you have questions or concerns regarding this new plan of care! Sincerely, Jayde Hi, PT, Cert MDT
--- NOTE | 2023-02-10 10:02 | HP.PTDCNRP_ITS ---
Patient Information Patient Information: BELEM DILL was seen in my office for initial evaluation on 12/30/22. The following Plan of Care was established for this patient: POC Established Initial Frequency: 2-3x /Week Initial Duration: 4-6 Weeks Anticipated Interventions Patient/Client Instruction: Educate patient on: Condition, Plan of Care and Risk Factors For the Purpose of:: To improve self management Therapeutic Exercise to Include: Strength training, Body mechanics, Postural training, Flexibilty training, Neuromotor development and Scapular Strength/Stabilization For the Purpose of:: To decrease pain, To increase ROM, To improve muscle performance and motor function, To increase tolerance to activity/c ondition/position and To improve ability of physical actions for home/community/work/leisure Manual Therapy Techniques to Include: Functional dry needling and Soft tissue mobilization Comment: CONSIDER DRY NEEDLING For the Purpose of:: To decrease pain, To increase ROM and To improve nutrient delivery to tissue TENS: Yes IF ES: Yes Cryotherapy (ice pack, ice massage): Yes Thermo therapy (hot pack): Yes Ultrasound (thermal/non thermal): Yes Intermittent cervical traction: Yes For the Purpose of:: To decrease pain, To increase ROM and To improve nutrient d elivery to tissue Last Seen Last Seen: This patient was last seen in our office 01/22/23. Pertinent comments regarding their Physical therapy will appear below: I received a note stating patient cancelled all remaining Physical Therapy appointments per her doctor. At this point I will be discontinuing this patient from physical therapy. I would be happy to see this patient again in the future if found appropriate by the physician. Thank you! Jayde Hi, PT, Cert MDT Balance/Gait/Functional tests Balance/Special Test Scores Oswestry Neck Score: 10
--- NOTE | 2023-02-17 13:00 | HP.PTREVAL_ITS ---
Re-Evaluation Intro: Dr. Rashard Heller MD, It has been my pleasure to treat BELEM DILL over the last 10 visits for LEFT TRAP STRAIN AND RADIAL NEUROPATHY. Please see the progress note below for an update on the physical therapy plan of care! Subjective Subjective: PATIENT REPORTS DR. HELLER PUT THERPAY ON HOLD TO DO FURTHER TESTING AND HAS NOW TOLD HER TO RESUME PT. SHE REPORTS SHE HAS HAD NECK X-RAYS AND A NECK CAT SCAN. SHE STATES THOSE TESTS SHOWED SHE WAS LOSING LENGTH IN TWO OF HER VERTEBRAE BONES. PATIENT REPORTS HER SX'S GOT WORSE AGAIN WHEN SHE STOPPED THERAPY. CURRENTLY SHE REPORTS SHE DOESN'T HAVE MUCH NECK ROM SIDE TO SIDE TURNING OR TILTING AND SHE HAS SORE MUSCLES AND A STIFF NECK EVERYDAY. PATIENT DENIES RAUL UE PAIN, NUMBNESS OR TINGLING. Objective Objective/Function: PATIENT WAS SEEN TODAY FOR RE-ASSESSMENT DUE TO THERAPY BEING PUT ON HOLD SINCE JANUARY 22 2023. PATIENT WAS RESPONDING VERY WELL TO PT AND L UE NUMBNESS AND TINGLING ABOLISHED AND UNDERLYING CHRONIC NECK AND L SHLD PAIN PERSISTED WHEN THERAPY WAS STOPPED. PATIENT IS A GOOD CANDIDATE TO RESUME PT BASED ON PROGRESS MADE AND POSSIBLE ROOM FOR FURTHER IMPROVEMENT AND SHE IS EXPRESSING THE DESIRE TO TRY MORE PT. 02/06/[address] RESULTS: Mild degenerative changes at C5-6 and C6-7, otherwise unremarkable cervical spine. 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 THIS IS AN IMPROVEMENT FROM INITIAL EVAL. RIGHT UE 5/5. L UE: SHLD 5/5, ELBOW 5/5, WRIST 5/5. Cervical Mvmt Loss: Flex: NIL - INCREASES B UT PAIN Pro: NIL - NO PAIN Ext: NIL - NE Ret: MIN - NE RSB: MIN - INCREASES R NECK PAIN LSB: MIN - INCREASES L NECK PAIN R Rot: NIL - L NECK PAIN L Rot: MIN - L NECK PAIN. PATIENT REPORTS SLIGHT INCREASED NECK PAIN AFTER CERVICAL ROM TESTING TODAY. Plan Plan Plan: RESUME PT 2X'S A WK X 4 WKS MODALITIES AND RELAXATION OF CERVICAL MUSCULATURE WITH US, STM AND TRACTION. POSTURE CORRECTION/STRENGTHENING, INSTRUCTION IN APPROPRIATE BODY MECHANICS AND ACTIVITY MODIFICATIONS. RAUL UE ROM, STRETCHING AND STRENGTHENING. HEP INSTRUCTION. CONSIDER THE FOLLOWING EX'S: REP RET IN SITTING REP RET IN LYING SCAP SQUEEZES DEEP NECK FLEXOR LIFT PRONE W'S UE WALL SLIDES PRONE ROWS UE TBAND WALL WALKS ANTERIOR/MIDDLE SCALENE STRETCH UPPER TRAP STRETCH LEVATOR SCAPULAE STRETCH CHEST/PEC MAJOR AND MINOR STRETCH Balance/Gait/Functional tests Balance/Special Test Scores Oswestry Neck Score: 10 Goals Goals Goal 1:: DECREASE C/O NECK AND L UE SX'S. Goal Time Frame: 4-6 Weeks Goal Progress: Progressing Goal 2:: IMPROVE PERSONAL CARE, READING, SLEEP, WORK, DRIVING AND RECREATIONAL FUNCTION Goal Time Frame: 4-6 Weeks Goal Progress: Progressing Goal 3:: INSTRUCT IN PROPHYLAXIS Goal Time Frame: 4-6 Weeks Goal Progress: Progressing Anticipated Interventions Anticipated Interventions Patient/Client Instruction: Educate patient on: Condition, Plan of Care and Risk Factors For the Purpose of:: To improve self management Therapeutic Exercise to Include: Strength training, Body mechanics, Postural training, Flexibilty training, Neuromotor development and Scapular Strength/Stabilization For the Purpose of:: To decrease pain, To increase ROM, To improve muscle performance and motor function, To increase tolerance to activity/condition/position and To improve ability of physical actions for home/community/work/leisure Manual Therapy Techniques to Include: Functional dry needling and Soft tissue mobilization Comment: CONSIDER DRY NEEDLING For the Purpose of:: To decrease pain, To increase ROM and To improve nutrient delivery to tissue TENS: Yes IF ES: Yes Cryotherapy (ice pack, ice massage): Yes Thermo therapy (hot pack): Yes Ultrasound (thermal/non thermal): Yes Intermittent cervical traction: Yes For the Purpose of:: To decrease pain, To increase ROM and To improve nutrient delivery to tissue Re-Evaluation Ending Re-evaluation ending: Please do not hesitate to contact me at [phone] by phone or if you have questions or concerns regarding this new plan of care! Sincerely, Jayde Hi, PT, Cert MDT
--- NOTE | 2023-03-17 09:51 | HP.PTDCSUM ---
Discharge Summary D/C summary: It has been my pleasure to treat BELEM DILL referred by Dr. Rashard Byrne MD, with the diagnosis of LEFT TRAP STRAIN AND RADIAL NEUROPATHY for a total of 18 visit(s). Discharge Date: Please see the following information for a summary of their discharge status. Subjective Subjective: PATIENT REPORTS THE SHOOTING PAIN DOWN HER L ARM AND THUMB NUMBNESS IS STILL GONE BUT SHE STILL HAS NECK PAIN AND STIFFNESS AND STILL HAS HEADACHES. SHE REPORTS SHE HAS HAD THESE SYMPTOMS FOR A FEW YEARS NOW. HEADACHES ARE INTERMITTENT AND NECK PAIN IS CONSTANT. PATIENT REPORTS THAT SHE IS JUST GETTING TEMPORARY RELIEF FROM PT (INCLUDING TRACTION) FOR THE CHRONIC SX'S. TEMPROARY RELIEF FROM MASSAGE THERPAY TOO. PATIENT REPORTS FEELING RELIEF FROM THE COMPRESSED FEELING IN HER NECK AFTER LAST TREATMENT FOR ABOUT 1/2 DAY. Pain c-spine: Pain Intensity (Out of 10): 2 L UE: Pain Intensity (Out of 10): 3 SEGURA: Pain Intensity (Out of 10): 0 Overall Improvement % Improvement: 90 Objective Objective/Function: PATIENT WAS SEEN TODAY FOR RE-ASSESSMENT OF PROGRESS TOWARD THE SET PT GOALS AND THE NEED FOR FURTHER PHYSICAL THERAPY VS READINESS FOR DISCHARGE. PATIENT IS NOT CONTINUEING TO IMPROVE. PHYSICIAN RE-ASSESSMENT RECOMMENDED. PATIENT DOES GET SOME TEMPROARY RELIEF FROM CTX AND SHE MAY WANT TO CONSIDER A HOME UNIT IF SHE DOESN'T HAVE ANY BETTER OPTIONS. UPON EXAM TODAY: Motor deficit: PATIENT IS L HAND DOMINANT WITH A R CERTIFIED OPHTHALMIC SURGICAL ASSISTANT STRENGTH OF 61 LBS AND LEFT 63 LBS. THIS IS AN IMPROVEMENT FROM INITIAL EVAL. RIGHT UE 5/5. L UE: SHLD 5/5, ELBOW 5/5, WRIST 5/5. Cervical Mvmt Loss: Flex: NIL - INCREASES B UT PAIN Pro: NIL - NO PAIN Ext: NIL - NE Ret: MIN - RAUL NECK PAIN L>R RSB: MIN - INCREASES RAUL NECK PAIN LSB: MIN - INCREASES L NECK PAIN - SEVERE. R Rot: NIL - L NECK PAIN L Rot: MIN - L NECK PAIN. PATIENT REPORTS SLIGHT INCREASED NECK PAIN AFTER CERVICAL ROM TESTING TODAY. PATIENT IS INDEP WITH A HEP AND RECOMMEND PATIENT CONTINUE HEP TOLERATED. Goals Goal 1:: DECREASE C/O NECK AND L UE SX'S. Goal Progress: Not Progressing Goal 2:: IMPROVE PERSONAL CARE, READING, SLEEP, WORK, DRIVING AND RECREATIONAL FUNCTION Goal Progress: Not Progressing Goal 3:: INSTRUCT IN PROPHYLAXIS Goal Progress: Not Progressing Plan Plan: D/C DUE TO LACK OF CONTINUED PROGRESS. D/C Information d/c sentence: If there are questions or concerns regarding this patient's physical therapy, please feel free to call me at [phone]. Thank you for the referral of this patient. Sincerely, Jayde Hi, PT, Cert MDT Balance/Gait/Functional tests Balance/Special Test Scores Oswestry Neck Score: 10 Improvement % Improvement: 90
== END 2023-03-17 13:25 | disposition home or self-care (01) ==
LOC: PT 09:00
PROVIDERS: PCP Family Medicine; Referring Provider Family Medicine; Visit Provider Family Medicine
DX: S46.812D Strain of other muscles, fascia and tendons at shoulder and upper arm level, left arm, subsequent encounter (principal); M54.2 Cervicalgia
CPT/HCPCS: 97012; 97035; 97110; 97112; 97140; 97162; 97164; 97530

== ENCOUNTER → 2023-03-18 | Outpatient (CLI) | payer OTHER, SELFPAY ==
[2023-03-18 10:19] LABS: Absolute Lymphocyte Count 1.12 X10^3/uL (0.83-4.51); Absolute Neutrophil Count 2.7 X10^3/uL (2.0-7.7); Basophil# 0.04 X10^3/uL; Basophil% 0.9 % (0-1); Eosinophil# 0.13 X10^3/uL; Lymphocyte # 1.12 X10^3/ul (0.83-4.51); Lymphocyte % 26.2 % (19-41); Mean Corp Hgb Conc 31.7 g/dL (32-36); Mean Corpuscular Hgb 30.8 pg (27.0-32.0); Mean Corpuscular Volume 97.2 fL (81-99); Mean Platelet Vol. 9.9 fl (6.2-12.0); Monocyte# 0.33 X10^3/uL; Monocyte% 7.7 % (0-10); NRBC Flagged by Analyzer 0 % (0-5); Neutrophil # 2.65 X10^3/uL (2.7-7.7); Platelet Count 210 K/mm3 (150-450); RBC Distribution Width CV 12.5 % (11.6-14.6); RBC Distribution Width SD 44.1 fl (35.1-43.9); Red Blood Count 4.22 M/mm3 (4.2-5.4); White Blood Count 4.3 K/mm3 (4.4-11.0)
[2023-03-18 10:23] LABS: Erythrocyte Sedimentation Rate < 1 mm/hr (0-30)
[2023-03-18 10:51] LABS: Vitamin D,25 Hydroxy 73.1 ng/mL
[2023-03-18 11:19] LABS: ALB/GLOB Ratio 1.2 RATIO (0.9-2.4); AST(SGOT) 25 U/L (15-37); Alanine Aminotransfer ALT/SGPT 49 U/L (13-56); Albumin, Serum 3.9 g/dL (3.2-5.0); Alkaline Phosphatase 43 U/L (45-117); Anion Gap 3 (5-15); BUN 9 mg/dL (7-18); BUN/Creat Ratio 9.2 RATIO (10-20); CRP < 2.90 mg/L (0.0-3.0); Calcium,Total 8.8 mg/dL (8.5-10.1); Chloride 108 mmol/L (98-107); Cholesterol 181 mg/dL (200); Creatinine, Serum 0.97 mg/dL (0.55-1.02); EST Glomerular Filtration Rate 68 mL/min (>60); Est Glom Filt Rate - Afr Amer 83 mL/min (>60); Globulin 3.2 g/dL (2.2-4.2); Glucose 93 mg/dL (74-106); High Density Lipoprotein 81 mg/dL; Potassium 4.1 mmol/L (3.5-5.1); Protein, Total 7.1 g/dL (6.4-8.2); Rheumatoid Factor < 10.0 IU/mL (<15); Sodium Level 140 mmol/L (136-145); Thyroid Stim Hormone (TSH) 0.78 uIU/mL (0.358-3.74); Triglycerides 42 mg/dL; Very Low Density Lipoprotein 8 mg/dL (5-40)
[2023-03-19 12:09] LABS: ANTINUCLEAR ANTIBODIES DIRECT Positive (Negative)
[2023-03-23 13:07] LABS: Anti-Nuclear Antibody Test Negative (.)
[2023-03-29 18:07] LABS: HLA B27 Negative (.)
== END | disposition home or self-care (01) ==
LOC: LAB 09:22
PROVIDERS: PCP Family Medicine; Referring Provider Family Medicine; Visit Provider Family Medicine
DX: I73.00 Raynaud's syndrome without gangrene (principal); F32.A Depression, unspecified; M47.812 Spondylosis without myelopathy or radiculopathy, cervical region; Z13.220 Encounter for screening for lipoid disorders
CPT/HCPCS: 36415; 80053; 80061; 81374; 82306; 84443; 85025; 85652; 86038; 86140; 86431

== ENCOUNTER → 2023-06-02 | Outpatient (CLI) | payer OTHER, SELFPAY ==
--- NOTE | 2023-06-02 08:07 | US_ITS ---
STUDY: ULTRASOUND OF THE FEMALE PELVIS - COMPLETE REASON FOR EXAM: Female, 38 years old. AUB LMP: Unknown TECHNIQUE: Transabdominal and Transvaginal TECHNICAL QUALITY: Adequate. COMPARISON: Comparison is made with prior study March 22, 2019. FINDINGS: The uterus is retroverted and is in a midline position. The uterus measures 8.8 cm x 5.2 cm x 4 cm. Normal uterine cervix. The endometrium measures 7 mm in thickness, and is hyperechoic. There is no demonstrated endometrial mass. There is no demonstrated myometrial mass. I.U.D. - The patient does not have an I.U.D. The right ovary is visualized. The right ovary measures 3 cm x 2 cm x 1.4 cm. There is no right ovarian cyst or ovarian mass. There is no visualized right adnexal mass or complex lesion. There is normal arterial and normal venous vascularity. The left ovary is visualized. The left ovary measures 3.1 cm x 1.9 cm x 1 cm. There is no left ovarian cyst or ovarian mass. There is no visualized left adnexal mass or complex lesion. There is normal arterial and normal venous vascularity. There is no fluid in the cul-de-sac. The pre void volume of the bladder was 139 ml. US/Pelvic (Non ) IMPRESSION: Normal female pelvis. Electronically Signed: David Sprague MD at 13:26 EST ,
== END | disposition home or self-care (01) ==
LOC: US 08:06
PROVIDERS: PCP Family Medicine; Referring Provider Nurse Practitioner Women's Health; Visit Provider Nurse Practitioner Women's Health
DX: N93.9 Abnormal uterine and vaginal bleeding, unspecified (principal)
CPT/HCPCS: 76830; 76856

== ENCOUNTER → 2023-06-05 | Outpatient (CLI) | payer OTHER, SELFPAY ==
--- NOTE | 2023-06-05 12:46 | MRI_ITS ---
EXAM: MR CERVICAL SPINE WITHOUT INTRAVENOUS CONTRAST CLINICAL INDICATION: RADICULOPATHY TECHNIQUE: Multiplanar and multisequence MR images of the cervical spine without intravenous contrast were performed. Magnetic field strength 1.5 T. COMPARISON: CT of the cervical spine without contrast 02/06/2023. FINDINGS: VERTEBRAE: Unremarkable. Normal vertebral bodies and posterior elements. Normal alignment. Normal craniocervical junction and cervicothoracic junction. No spondylolisthesis. There is preservation of the normal cervical lordosis. SPINAL CORD: Unremarkable in signal and morphology. SOFT TISSUES: Unremarkable. No prevertebral soft tissue swelling. LYMPH NODES: Unremarkable. There is no cervical adenopathy. DISCS/SPINAL CANAL/NEURAL FORAMINA: C2-C3: Unremarkable. Normal disc height and morphology. Normal spinal canal. Normal neuroforamina. C3-C4: Unremarkable. Normal disc height and morphology. Normal spinal canal. Normal neuroforamina. C4-C5: Mild disc space narrowing. Slight central disc protrusion. No spinal canal or foraminal stenosis. C5-C6: C5-6: Disc space narrowing and mild generalized disc bulge. No spinal canal or foraminal stenosis. C6-C7: Disc space narrowing and mild generalized disc bulge. No spinal canal or foraminal stenosis. C7-T1: Unremarkable. Normal disc height and morphology. Normal spinal canal. Normal neuroforamina. MRI/Spine Cervical (Routine) IMPRESSION: 1. C4-C5 mild spondylosis and slight central disc protrusion. No spinal canal or foraminal stenosis. 2. C5-C6 mild spondylosis without spinal canal or foraminal stenosis. 3. C6-C7 mild spondylosis without spinal canal or foraminal stenosis. Electronically Signed: Osito Mercer MD at 8:07 EST ,
== END | disposition home or self-care (01) ==
LOC: MRI 06-07 10:34
PROVIDERS: PCP Family Medicine; Referring Provider Anesthesiology; Visit Provider Anesthesiology
DX: M54.12 Radiculopathy, cervical region (principal)
CPT/HCPCS: 72141

== ENCOUNTER → 2023-07-28 | Outpatient (CLI) | payer OTHER, SELFPAY ==
--- NOTE | 2023-07-28 11:00 | EMB_PTH ---
PATHOLOGY RESULTS PATIENT: BELEM DILL LOC: [facility] U#:[id number] AGE/SX: 38/F ROOM: RE07/28/[address]: MARCIA Larose : 1985 BED: DIS: 07/28/2023 SPEC #: [id number] RECD: 07/29/23 07:31 STATUS: MAYRA ABREU #: [id number] MARINA: 07/28/23 11:[address]: Carlota Orozco NP DEPT: SURGICAL PATHOLOGY RECD BY: Deidra Hansen ENTERED: 07/29/23 07:31 SP TYPE: ENDOM BX/C MATEOHR DR: Dr. Ramesh Byrne MD Tissues: Endometrium, NOS Procedures: Surgery Specimen Level IV HEADER OPERATION: Endometrial biopsy PRE-OP DIAGNOSIS: Abnormal uterine bleeding TISSUE SUBMITTED: Endometrial tissue MICROSCOPIC DIAGNOSIS Endometrium, biopsy: Proliferative endometrium with focal glandular breakdown. AM:hali 07/30/2023 MICROSCOPIC DESCRIPTION Slides are reviewed. GROSS DESCRIPTION Received is one container labeled with the patient's name and not further designated. The specimen consists of multiple irregular fragments of pink soft tissue mixed with mucoid tissue that in aggregate measure 3.0 x 2.5 x 0.1 cm. The specimen is totally submitted in one cassette. / SJ:hali 07/29/2023 TC:5 CPT: 19210
== END | disposition home or self-care (01) ==
LOC: LABSPEC 15:55
PROVIDERS: PCP Family Medicine; Referring Provider Nurse Practitioner Women's Health; Visit Provider Nurse Practitioner Women's Health
DX: N93.9 Abnormal uterine and vaginal bleeding, unspecified (principal)
CPT/HCPCS: 88305

== ENCOUNTER → 2025-03-28 | Outpatient (CLI) | payer OTHER, SELFPAY ==
--- NOTE | 2025-03-28 12:00 | BI_ITS ---
EXAM: SCRN MAMM (CAD)W/SAMANTHA BILAT DATE: 03/28/2025 CLINICAL HISTORY: F, Age 40 y/o , SCREEN No family history. Bilateral breast discharge. TECHNIQUE: Procedure Code: [id number] Modality: MG Procedure: SCRN MAMM (CAD)W/SAMANTHA BILAT COMPARISON: Prior exam(s) dated March 10, 2023.. FINDINGS: TISSUE DENSITY: The breasts are extremely dense, which lowers the sensitivity of mammography. Bilateral Breast Mammographic Findings: No significant masses, calcifications or other abnormalities are identified. No suspicious masses, areas of developing architectural distortion, or suspicious calcifications. There has been no significant interval change. BI/SCRN MAMM (CAD)W/SAMANTHA BILAT IMPRESSION: Stable bilateral screening mammogram. OVERALL FINAL ASSESSMENT BI-RADS 1: NEGATIVE. RECOMMENDATION: Routine annual follow-up in 1 Year Additional Recommendation none A letter with findings and recommendations will be mailed to the patient. Reading Location: [facility]
== END | disposition home or self-care (01) ==
LOC: OPBI 11:56
PROVIDERS: PCP Family Medicine; Referring Provider Nurse Practitioner Women's Health; Visit Provider Nurse Practitioner Women's Health
DX: Z12.31 Encounter for screening mammogram for malignant neoplasm of breast (principal)
CPT/HCPCS: 77063; 77067